=== PATIENT | female | born 1945 | race Caucasian/White ===

== ENCOUNTER 2016-06-22 17:24 | Inpatient (IN) | payer MEDICARE, MEDICAID ==
[~2016-06-22] VITALS: Ht 157.5 cm; Wt 54.2 kg
[~2016-06-22 17:24] MED LIST: AMLO-511 PO; DIPH25 PO; OMEP20 PO; VITAD1000 PO
[2016-06-22] MEDS ORDERED: QUEtiapine FUMARATE 25 MG TABLET PO PRN (18:00)
[2016-06-22] MEDS ORDERED: LORazepam 0.5 MG TABLET PO PRN (18:00)
[2016-06-22] MEDS ORDERED: ZOLPIDEM TARTRATE 5 MG TABLET PO PRN (18:00)
[2016-06-22] MEDS ORDERED: INFLUENZA VIRUS VACCINE QVS 2016-17 (3YR+)/PF 60 MCG/0.5 ML SYRINGE IM ONE (18:45)
[2016-06-22 19:30] VITALS: BP 123/66
[2016-06-22] MEDS: AmLODIPine BESYLATE 5 MG TABLET PO SCH (19:30)
[2016-06-22] MEDS: IBUPROFEN 600 MG TABLET PO PRN (19:31)
[2016-06-22] MEDS: DiphenhydrAMINE HCL 25 MG CAPSULE PO SCH (21:21)
[2016-06-22] MEDS: ASENAPINE 5 MG SUBLINGUAL TABLET SL SCH (21:21)
[2016-06-23 00:12] VITALS: BP 130/67
[2016-06-23 08:24] LABS: BASOPHILS % (AUTO) 0.6 % (0.0-2.0); EOSINOPHILS % (AUTO) 4.6 % (1.0-6.0); HEMATOCRIT 37.3 % (36-46); HEMOGLOBIN 12.2 g/dL (12.0-16.0); LYMPHOCYTES # (AUTO) 2.1 K/uL (1.0-4.8); LYMPHOCYTES % (AUTO) 39.8 % (22.0-44.0); MEAN CORPUSCULAR HEMOGLOBIN 30.1 pg (26.0-34.0); MEAN CORPUSCULAR HGB CONC 32.8 G/dL (31.0-37.0); MEAN CORPUSCULAR VOLUME 92 fL (80-100); MONOCYTES # (AUTO) 0.4 K/uL (0.1-1.0); MONOCYTES % (AUTO) 8.3 % (2.0-9.0); NEUTROPHILS # (AUTO) 2.4 K/uL (1.8-7.7); NEUTROPHILS % (AUTO) 46.7 % (40.0-70.0); PLATELET COUNT (AUTO) 169 K/uL (150-450); RED BLOOD CELL COUNT(AUTO) 4.05 MIL/uL (4.00-5.20); RED CELL DISTRIBUTION WIDTH 13.8 % (11.5-14.5); WHITE BLOOD COUNT (AUTO) 5.2 K/uL (4.5-11.0)
[2016-06-23 08:35] VITALS: BP 138/61
[2016-06-23 09:00] LABS: HEMOGLOBIN A1C 5.7 % (4.5-6.2)
[2016-06-23 09:11] LABS: ALANINE AMINOTRANSFERASE 19 U/L (12-78); ALBUMIN 3.5 g/dL (3.4-5.0); ANION GAP 8 mmol/L (8-16); ASPARTATE AMINOTRANSFERASE 18 U/L (15-37); BILIRUBIN,TOTAL 0.3 mg/dL (0.1-1.0); CALCIUM, TOTAL 8.6 mg/dL (8.8-10.5); CARBON DIOXIDE 26 mmol/L (22-29); CHLORIDE 107 mmol/L (98-107); CHOL/HDL RATIO 2.9 (3.9-5.7); CREATININE 0.61 mg/dL (0.60-1.30); GLOMERULAR FILTR. RATE CALC > 60 mL/min (>60); POTASSIUM 3.8 mmol/L (3.5-5.1); SODIUM SERUM 141 mmol/L (136-145); THYROID STIMULATING HORMONE 3.08 uIU/mL (0.36-3.74); TOTAL PROTEIN, SERUM 6.6 g/dL (6.4-8.2); UREA NITROGEN, BLOOD 16 mg/dL (7-18)
[2016-06-23 09:35] VITALS: BP 135/69
[2016-06-23] MEDS: AmLODIPine BESYLATE 5 MG TABLET PO SCH (09:37)
[2016-06-23] MEDS ORDERED: MAGNESIUM HYDROXIDE SUSPENSION 30 ML UDCUP PO PRN (10:30)
[2016-06-23 16:11] VITALS: BP 118/81
[2016-06-23 17:40] VITALS: BP 138/65
[2016-06-23] MEDS: IBUPROFEN 600 MG TABLET PO PRN (17:46)
[2016-06-23] MEDS: DiphenhydrAMINE HCL 25 MG CAPSULE PO SCH (20:36)
[2016-06-23] MEDS: ASENAPINE 5 MG SUBLINGUAL TABLET SL SCH (21:06)
[2016-06-23] MEDS ORDERED: ONDANSETRON HCL 4 MG TABLET PO PRN (22:30)
[2016-06-23] MEDS ORDERED: CloNIDine HCL 0.1 MG TABLET PO PRN (22:30)
[2016-06-23] MEDS ORDERED: ALBUTEROL SULFATE HFA 90 MCG/PUFF 8 GM INHALER IH PRN (22:30)
[2016-06-23] MEDS ORDERED: PETROLATUM,WHITE 71 GM JELLY TP PRN (22:30)
[2016-06-23] MEDS ORDERED: LOPERAMIDE HCL 2 MG CAPSULE PO PRN (22:30)
[2016-06-23] MEDS ORDERED: IBUPROFEN 600 MG TABLET PO PRN (22:30)
[2016-06-23] MEDS ORDERED: BENZOCAINE/MENTHOL LOZENGE MM PRN (22:30)
[2016-06-23] MEDS ORDERED: BACITRACIN 28.4 GM OINTMENT TP PRN (22:30)
[2016-06-23] MEDS ORDERED: MAG HYDROX/AL HYDROX/SIMETH ES 30 ML SUSPENSION UDCUP PO PRN (22:30)
[2016-06-24 06:22] VITALS: BP 144/77
[2016-06-24 08:31] VITALS: BP 138/67
[2016-06-24] MEDS: AmLODIPine BESYLATE 5 MG TABLET PO SCH (08:55)
[2016-06-24] MEDS ORDERED: TRIAMCINOLONE 0.1% 15 GM OINTMENT TP PRN (11:00)
[2016-06-24 16:11] VITALS: BP 129/73
[2016-06-24] MEDS: ASENAPINE 5 MG SUBLINGUAL TABLET SL SCH (20:09)
[2016-06-24] MEDS: DiphenhydrAMINE HCL 25 MG CAPSULE PO SCH (20:09)
[2016-06-25 06:38] VITALS: BP 147/74
[2016-06-25 08:14] VITALS: BP 132/77
[2016-06-25] MEDS: AmLODIPine BESYLATE 5 MG TABLET PO SCH (09:00)
[2016-06-25 16:11] VITALS: BP 136/79
[2016-06-25] MEDS: DiphenhydrAMINE HCL 25 MG CAPSULE PO SCH (20:48)
[2016-06-25] MEDS: ASENAPINE 5 MG SUBLINGUAL TABLET SL SCH ×2 (21:00→21:57)
[2016-06-26 06:30] VITALS: BP 135/68
[2016-06-26] MEDS: AmLODIPine BESYLATE 5 MG TABLET PO SCH (08:51)
[2016-06-26 09:57] VITALS: BP 145/77
[2016-06-26 16:46] VITALS: BP 140/72
[2016-06-26] MEDS: ACETAMINOPHEN 325 MG TABLET PO PRN (19:04)
[2016-06-26] MEDS ORDERED: OMEPRAZOLE 20 MG CAPSULE PO ONE (21:00)
[2016-06-26] MEDS: ASENAPINE 5 MG SUBLINGUAL TABLET SL SCH (21:00)
[2016-06-26] MEDS: DiphenhydrAMINE HCL 25 MG CAPSULE PO SCH (21:00)
[2016-06-27 00:54] VITALS: BP 142/86
[2016-06-27] MEDS: OMEPRAZOLE 20 MG CAPSULE PO SCH ×2 (06:41→16:52)
[2016-06-27 08:12] VITALS: BP 155/77
[2016-06-27] MEDS: AmLODIPine BESYLATE 5 MG TABLET PO SCH (09:09)
[2016-06-27] MEDS: TRIAMCINOLONE 0.1% 15 GM CREAM TP PRN (13:05)
[2016-06-27 16:16] VITALS: BP 139/75
[2016-06-27] MEDS: ASENAPINE 5 MG SUBLINGUAL TABLET SL SCH (20:36)
[2016-06-27] MEDS: DiphenhydrAMINE HCL 25 MG CAPSULE PO SCH (20:36)
[2016-06-28 06:09] VITALS: BP 141/73
[2016-06-28] MEDS: OMEPRAZOLE 20 MG CAPSULE PO SCH ×2 (06:30→16:35)
[2016-06-28 07:59] VITALS: BP 143/85
[2016-06-28 08:00] VITALS: BP 143/85
[2016-06-28] MEDS: AmLODIPine BESYLATE 5 MG TABLET PO SCH (09:00)
[2016-06-28 16:16] VITALS: BP 125/64
[2016-06-28] MEDS: ASENAPINE 5 MG SUBLINGUAL TABLET SL SCH (21:00)
[2016-06-28] MEDS: DiphenhydrAMINE HCL 25 MG CAPSULE PO SCH (21:00)
[2016-06-29 06:20] VITALS: BP 128/77
[2016-06-29] MEDS: OMEPRAZOLE 20 MG CAPSULE PO SCH ×2 (06:29→16:30)
[2016-06-29] MEDS: AmLODIPine BESYLATE 5 MG TABLET PO SCH (09:00)
[2016-06-29 09:17] VITALS: BP 129/73
[2016-06-29 16:25] VITALS: BP 139/79
[2016-06-29] MEDS: DiphenhydrAMINE HCL 25 MG CAPSULE PO SCH (20:44)
[2016-06-29] MEDS: ASENAPINE 5 MG SUBLINGUAL TABLET SL SCH (20:44)
[2016-06-30 05:35] VITALS: BP 125/63
[2016-06-30] MEDS: OMEPRAZOLE 20 MG CAPSULE PO SCH ×2 (06:17→16:30)
[2016-06-30 08:12] VITALS: BP 132/74
[2016-06-30] MEDS: AmLODIPine BESYLATE 5 MG TABLET PO SCH (09:00)
[2016-06-30 16:10] VITALS: BP 122/73
[2016-06-30] MEDS: DiphenhydrAMINE HCL 25 MG CAPSULE PO SCH (20:38)
[2016-06-30] MEDS: ASENAPINE 5 MG SUBLINGUAL TABLET SL SCH (20:38)
[2016-07-01 00:46] VITALS: BP 139/72
[2016-07-01] MEDS: OMEPRAZOLE 20 MG CAPSULE PO SCH ×3 (06:25→16:30)
[2016-07-01 08:29] VITALS: BP 126/64
[2016-07-01] MEDS: AmLODIPine BESYLATE 5 MG TABLET PO SCH (09:00)
[2016-07-01 16:05] VITALS: BP 133/66
[2016-07-01] MEDS: DiphenhydrAMINE HCL 25 MG CAPSULE PO SCH (20:42)
[2016-07-01] MEDS: ASENAPINE 5 MG SUBLINGUAL TABLET SL SCH (20:42)
[2016-07-02] MEDS: OMEPRAZOLE 20 MG CAPSULE PO SCH ×2 (05:39→16:30)
[2016-07-02 05:56] VITALS: BP 141/8
[2016-07-02] MEDS: AmLODIPine BESYLATE 5 MG TABLET PO SCH (08:22)
[2016-07-02 08:34] VITALS: BP 138/70
[2016-07-02 16:03] VITALS: BP 140/77
[2016-07-02] MEDS: DiphenhydrAMINE HCL 25 MG CAPSULE PO SCH (20:49)
[2016-07-02] MEDS: ASENAPINE 5 MG SUBLINGUAL TABLET SL SCH (20:49)
[2016-07-03 00:03] VITALS: BP 148/65
[2016-07-03] MEDS: OMEPRAZOLE 20 MG CAPSULE PO SCH ×2 (06:29→07:21)
[2016-07-03 09:56] VITALS: BP 148/73
[2016-07-04] MEDS ORDERED: OLANZapine 5 MG RAPDIS TABLET PO SCH (10:30)
[2016-07-04] MEDS ORDERED: QUEtiapine FUMARATE 100 MG TABLET PO SCH (10:30)
[2016-07-04] MEDS ORDERED: DiphenhydrAMINE HCL 50 MG/ML VIAL IM PRN ×2 (15:30→23:30)
[2016-07-04] MEDS ORDERED: FluPHENAZine HCL 2.5 MG/ML INJ IM PRN ×2 (15:30→23:30)
[2016-07-04] MEDS: OMEPRAZOLE 20 MG CAPSULE PO SCH (16:30)
[2016-07-04] MEDS: OLANZapine 5 MG RAPDIS TABLET PO SCH (17:00)
[2016-07-04] MEDS ORDERED: QUEtiapine FUMARATE 100 MG TABLET ONE (23:35)
[2016-07-04] MEDS ORDERED: OLANZapine 5 MG RAPDIS TABLET ONE ×2 (23:35)
[2016-07-04] MEDS ORDERED: OLANZapine 5 MG TABLET ONE (23:35)
[2016-07-04] MEDS ORDERED: DiphenhydrAMINE HCL 50 MG/ML VIAL ONE (23:36)
[2016-07-04] MEDS ORDERED: FluPHENAZine HCL 2.5 MG/ML INJ IM ONE ×2 (23:36)
[2016-07-05] MEDS: OMEPRAZOLE 20 MG CAPSULE PO SCH ×2 (06:19→17:22)
[2016-07-05 06:34] VITALS: BP 182/111
[2016-07-05 07:26] VITALS: BP 108/63
[2016-07-05 08:13] VITALS: BP 118/62
[2016-07-05] MEDS: OLANZapine 5 MG RAPDIS TABLET PO SCH ×2 (08:40→17:22)
[2016-07-05] MEDS ORDERED: OLANZapine 5 MG RAPDIS TABLET PO SCH (09:00)
[2016-07-05 16:10] VITALS: BP 117/79
[2016-07-06 05:32] VITALS: BP 132/71
[2016-07-06] MEDS: OMEPRAZOLE 20 MG CAPSULE PO SCH ×2 (05:35→16:30)
[2016-07-06] MEDS: OLANZapine 5 MG RAPDIS TABLET PO SCH ×2 (08:37→17:44)
[2016-07-06] MEDS: DOCUSATE SODIUM 250 MG CAPSULE PO SCH ×2 (10:45→16:46)
[2016-07-06 16:06] VITALS: BP 117/60
[2016-07-07 02:57] VITALS: BP 121/73
[2016-07-07] MEDS: OMEPRAZOLE 20 MG CAPSULE PO SCH ×2 (06:27→16:30)
[2016-07-07 08:11] VITALS: BP 148/75
[2016-07-07] MEDS: OLANZapine 5 MG RAPDIS TABLET PO SCH ×2 (08:38→17:39)
[2016-07-07] MEDS: DOCUSATE SODIUM 250 MG CAPSULE PO SCH ×2 (08:43→17:00)
[2016-07-07] MEDS: TRIAMCINOLONE 0.1% 15 GM CREAM TP PRN (15:53)
[2016-07-07 18:36] VITALS: BP 148/76
[2016-07-07 20:05] VITALS: BP 135/78
[2016-07-08 03:10] VITALS: BP 119/71
[2016-07-08] MEDS: OMEPRAZOLE 20 MG CAPSULE PO SCH ×3 (06:07→16:44)
[2016-07-08 06:12] VITALS: BP 123/88
[2016-07-08] MEDS: OLANZapine 5 MG RAPDIS TABLET PO SCH ×2 (08:31→16:44)
[2016-07-08] MEDS: DOCUSATE SODIUM 250 MG CAPSULE PO SCH ×2 (08:40→16:44)
[2016-07-08 08:55] VITALS: BP 128/73
[2016-07-08 16:28] VITALS: BP 135/74
[2016-07-09] VITALS: BP 106/62
[2016-07-09] MEDS: OMEPRAZOLE 20 MG CAPSULE PO SCH ×2 (06:38→16:18)
[2016-07-09 08:24] VITALS: BP 139/64
[2016-07-09] MEDS: DOCUSATE SODIUM 250 MG CAPSULE PO SCH ×2 (09:00→17:00)
[2016-07-09] MEDS: OLANZapine 5 MG RAPDIS TABLET PO SCH ×3 (09:10→20:06)
[2016-07-09 16:03] VITALS: BP 141/71
[2016-07-09] MEDS: TRIAMCINOLONE 0.1% 15 GM CREAM TP PRN (18:37)
[2016-07-10 02:49] VITALS: BP 158/78
[2016-07-10] MEDS: OMEPRAZOLE 20 MG CAPSULE PO SCH ×2 (06:12→16:31)
[2016-07-10 06:42] VITALS: BP 147/90
[2016-07-10 08:58] VITALS: BP 144/73
[2016-07-10] MEDS: DOCUSATE SODIUM 250 MG CAPSULE PO SCH ×2 (09:00→16:37)
[2016-07-10] MEDS: OLANZapine 5 MG RAPDIS TABLET PO SCH ×3 (09:19→20:15)
[2016-07-10 16:44] VITALS: BP 133/68
[2016-07-11] MEDS: OMEPRAZOLE 20 MG CAPSULE PO SCH ×3 (06:12→18:06)
[2016-07-11 06:24] VITALS: BP 131/72
[2016-07-11 08:03] VITALS: BP 141/90
[2016-07-11] MEDS: DOCUSATE SODIUM 250 MG CAPSULE PO SCH ×2 (09:00→17:00)
[2016-07-11] MEDS: OLANZapine 5 MG RAPDIS TABLET PO SCH ×3 (09:08→21:06)
[2016-07-11 16:08] VITALS: BP 120/62
[2016-07-12] MEDS: OMEPRAZOLE 20 MG CAPSULE PO SCH ×2 (06:04→16:30)
[2016-07-12 06:21] VITALS: BP 112/82
[2016-07-12] MEDS: DOCUSATE SODIUM 250 MG CAPSULE PO SCH ×3 (09:00→17:00)
[2016-07-12 09:05] VITALS: BP 130/74
[2016-07-12] MEDS: OLANZapine 5 MG RAPDIS TABLET PO SCH ×3 (09:49→20:43)
[2016-07-12] MEDS: TRIAMCINOLONE 0.1% 15 GM CREAM TP PRN (09:59)
[2016-07-12 16:11] VITALS: BP 127/77
[2016-07-13 02:08] VITALS: BP 123/66
[2016-07-13] MEDS: OMEPRAZOLE 20 MG CAPSULE PO SCH ×2 (05:53→17:12)
[2016-07-13] MEDS: OLANZapine 5 MG RAPDIS TABLET PO SCH ×3 (08:39→21:15)
[2016-07-13] MEDS: DOCUSATE SODIUM 250 MG CAPSULE PO SCH ×2 (08:39→17:00)
[2016-07-13 09:07] VITALS: BP 146/69
[2016-07-13 16:14] VITALS: BP 136/72
[2016-07-14 01:22] VITALS: BP 125/66
[2016-07-14] MEDS: OMEPRAZOLE 20 MG CAPSULE PO SCH ×2 (06:26→17:54)
[2016-07-14 08:05] VITALS: BP 147/76
[2016-07-14] MEDS: OLANZapine 5 MG RAPDIS TABLET PO SCH ×3 (08:41→20:41)
[2016-07-14] MEDS: DOCUSATE SODIUM 250 MG CAPSULE PO SCH ×2 (08:42→16:58)
[2016-07-14] MEDS: BENZOCAINE 10% 7 GM GEL TP PRN (12:18)
[2016-07-14 16:10] VITALS: BP 130/70
[2016-07-14] MEDS: CHLORHEXIDINE GLUCONATE 0.12% 15 ML UDCUP ORAL RINSE PO SCH (20:40)
[2016-07-15 00:01] VITALS: BP 129/72
[2016-07-15 03:29] VITALS: BP 122/66
[2016-07-15] MEDS: ACETAMINOPHEN 325 MG TABLET PO PRN (03:30)
[2016-07-15] MEDS: OMEPRAZOLE 20 MG CAPSULE PO SCH ×2 (05:50→16:37)
[2016-07-15] MEDS: DOCUSATE SODIUM 250 MG CAPSULE PO SCH ×2 (08:58→17:00)
[2016-07-15] MEDS: OLANZapine 5 MG RAPDIS TABLET PO SCH ×4 (08:58→21:10)
[2016-07-15 16:04] VITALS: BP 127/82
[2016-07-15] MEDS: CHLORHEXIDINE GLUCONATE 0.12% 15 ML UDCUP ORAL RINSE PO SCH ×2 (21:00→21:10)
[2016-07-16 06:09] VITALS: BP 116/73
[2016-07-16] MEDS: OMEPRAZOLE 20 MG CAPSULE PO SCH ×2 (06:19→16:23)
[2016-07-16 06:45] VITALS: BP 164/85
[2016-07-16 08:38] VITALS: BP 159/76
[2016-07-16] MEDS: DOCUSATE SODIUM 250 MG CAPSULE PO SCH ×2 (09:00→17:00)
[2016-07-16] MEDS: AMANTADINE HCL 100 MG CAPSULE PO SCH ×2 (09:00→21:00)
[2016-07-16] MEDS: OLANZapine 5 MG RAPDIS TABLET PO SCH ×2 (09:52→21:03)
[2016-07-16] MEDS: TRIAMCINOLONE 0.1% 15 GM CREAM TP PRN (10:24)
[2016-07-16 12:16] VITALS: BP 125/77
[2016-07-16 19:48] VITALS: BP 131/73
[2016-07-16] MEDS: CHLORHEXIDINE GLUCONATE 0.12% 15 ML UDCUP ORAL RINSE PO SCH (21:00)
[2016-07-17 02:04] VITALS: BP_SYST 121; BP_SYST 145; BP_DIAS 77; BP_DIAS 81
[2016-07-17] MEDS: TRIAMCINOLONE 0.1% 15 GM CREAM TP PRN (02:48)
[2016-07-17] MEDS: BENZOCAINE 10% 7 GM GEL TP PRN (02:48)
[2016-07-17] MEDS: OMEPRAZOLE 20 MG CAPSULE PO SCH ×2 (06:51→16:30)
[2016-07-17] MEDS: AMANTADINE HCL 100 MG CAPSULE PO SCH ×2 (09:00→21:00)
[2016-07-17] MEDS: DOCUSATE SODIUM 250 MG CAPSULE PO SCH ×2 (09:00→17:00)
[2016-07-17 09:09] VITALS: BP 125/81
[2016-07-17] MEDS: OLANZapine 5 MG RAPDIS TABLET PO SCH ×2 (09:16→21:33)
[2016-07-17 16:02] VITALS: BP 127/69
[2016-07-17] MEDS: CHLORHEXIDINE GLUCONATE 0.12% 15 ML UDCUP ORAL RINSE PO SCH (21:00)
[2016-07-18 06:10] VITALS: BP 121/80
[2016-07-18] MEDS: OMEPRAZOLE 20 MG CAPSULE PO SCH ×2 (06:51→16:15)
[2016-07-18] MEDS: AMANTADINE HCL 100 MG CAPSULE PO SCH ×2 (08:29→20:58)
[2016-07-18] MEDS: OLANZapine 5 MG RAPDIS TABLET PO SCH ×2 (08:30→20:58)
[2016-07-18 09:24] VITALS: BP 125/68
[2016-07-18 16:08] VITALS: BP 128/73
[2016-07-18] MEDS: CHLORHEXIDINE GLUCONATE 0.12% 15 ML UDCUP ORAL RINSE PO SCH (20:58)
[2016-07-19 06:11] VITALS: BP 138/76
[2016-07-19] MEDS: OMEPRAZOLE 20 MG CAPSULE PO SCH ×2 (06:27→16:07)
[2016-07-19 08:31] VITALS: BP 127/74
[2016-07-19] MEDS: OLANZapine 5 MG RAPDIS TABLET PO SCH ×2 (08:36→20:07)
[2016-07-19] MEDS: AMANTADINE HCL 100 MG CAPSULE PO SCH (09:00)
[2016-07-19 16:00] VITALS: BP 135/76
[2016-07-19] MEDS: CHLORHEXIDINE GLUCONATE 0.12% 15 ML UDCUP ORAL RINSE PO SCH (21:00)
[2016-07-20 06:04] VITALS: BP 125/73
[2016-07-20] MEDS: OMEPRAZOLE 20 MG CAPSULE PO SCH (06:43)
[2016-07-20] MEDS: OLANZapine 5 MG RAPDIS TABLET PO SCH (08:46)
[2016-07-20 09:02] VITALS: BP 125/60
[2016-07-20] MEDS ORDERED: OLAN5Z PO (10:02)
[2016-07-20] MEDS ORDERED: PERID15L PO (10:02)
== END 2016-07-20 12:47 | disposition home or self-care (01) | DRG 885 ==
LOC: B2S 17:52 → B2X 20:35
PROVIDERS: ADMIT Psychiatry & Neurology Psychiatry; ATTEND Psychiatry & Neurology Psychiatry
DX: F25.0 Schizoaffective disorder, bipolar type (principal); R45.851 Suicidal ideations; E55.9 Vitamin D deficiency, unspecified; I10 Essential (primary) hypertension; M19.90 Unspecified osteoarthritis, unspecified site; K59.00 Constipation, unspecified; E73.9 Lactose intolerance, unspecified; G47.00 Insomnia, unspecified; K21.9 Gastro-esophageal reflux disease without esophagitis; Z59.0 Homelessness; Z88.5 Allergy status to narcotic agent; Z91.14 Patient's other noncompliance with medication regimen; Z79.899 Other long term (current) drug therapy; Z28.21 Immunization not carried out because of patient refusal
CPT/HCPCS: 83036; 84439; 84443; J1200; J3490

== ENCOUNTER 2016-08-19 18:43 | Inpatient (IN) | payer MEDICAID, MEDICARE ==
[~2016-08-19] VITALS: Ht 157.5 cm; Wt 55.0 kg
[~2016-08-19 18:43] MED LIST changes: -AMLO-511 PO; -DIPH25 PO; +OLAN5Z PO; +PERID15L PO; -VITAD1000 PO
[2016-08-19] MEDS ORDERED: ZOLPIDEM TARTRATE 10 MG TABLET PO PRN (19:15)
[2016-08-19] MEDS ORDERED: LORazepam 2 MG TABLET PO PRN (19:15)
[2016-08-19] MEDS ORDERED: QUEtiapine FUMARATE 100 MG TABLET PO PRN (19:15)
[2016-08-19] MEDS ORDERED: INFLUENZA VIRUS VACCINE QVS 2016-17 (3YR+)/PF 60 MCG/0.5 ML SYRINGE IM ONE (19:45)
[2016-08-19 20:07] VITALS: BP 134/76
[2016-08-19] MEDS: OLANZapine 5 MG RAPDIS TABLET PO SCH (20:14)
[2016-08-20 06:25] VITALS: BP 141/68
[2016-08-20 08:21] VITALS: BP 134/66
[2016-08-20] MEDS: OLANZapine 5 MG RAPDIS TABLET PO SCH ×3 (08:35→21:00)
[2016-08-20] MEDS: DOCUSATE SODIUM 250 MG CAPSULE PO SCH ×3 (08:35→16:32)
[2016-08-20] MEDS: AmLODIPine BESYLATE 5 MG TABLET PO SCH ×2 (08:35→09:00)
[2016-08-20] MEDS ORDERED: LOPERAMIDE HCL 2 MG CAPSULE PO PRN (09:45)
[2016-08-20] MEDS ORDERED: BACITRACIN 28.4 GM OINTMENT TP PRN (09:45)
[2016-08-20] MEDS ORDERED: CloNIDine HCL 0.1 MG TABLET PO PRN (09:45)
[2016-08-20] MEDS ORDERED: IBUPROFEN 600 MG TABLET PO PRN (09:45)
[2016-08-20] MEDS ORDERED: ONDANSETRON HCL 4 MG TABLET PO PRN (09:45)
[2016-08-20] MEDS ORDERED: ALBUTEROL SULFATE HFA 90 MCG/PUFF 8 GM INHALER IH PRN (09:45)
[2016-08-20] MEDS ORDERED: PETROLATUM,WHITE 71 GM JELLY TP PRN (09:45)
[2016-08-20] MEDS ORDERED: BENZOCAINE/MENTHOL LOZENGE MM PRN (09:45)
[2016-08-20] MEDS ORDERED: MAG HYDROX/AL HYDROX/SIMETH ES 30 ML SUSPENSION UDCUP PO PRN (09:45)
[2016-08-20] MEDS ORDERED: MAGNESIUM HYDROXIDE SUSPENSION 30 ML UDCUP PO PRN (09:45)
[2016-08-20] MEDS: ACETAMINOPHEN 325 MG TABLET PO PRN (11:22)
[2016-08-20] MEDS ORDERED: OMEPRAZOLE 20 MG CAPSULE PO ONE (12:00)
[2016-08-20] MEDS: MAGNESIUM SULFATE 454 GM BOX TP SCH (12:11)
[2016-08-20 17:20] VITALS: BP 166/88
[2016-08-20 18:29] VITALS: BP 145/75
[2016-08-21] MEDS: OMEPRAZOLE 20 MG CAPSULE PO SCH (06:25)
[2016-08-21 08:24] VITALS: BP 138/68
[2016-08-21 08:28] LABS: BASOPHILS % (AUTO) 0.4 % (0.0-2.0); EOSINOPHILS % (AUTO) 3.5 % (1.0-6.0); HEMATOCRIT 39.7 % (36-46); HEMOGLOBIN 12.9 g/dL (12.0-16.0); LYMPHOCYTES # (AUTO) 1.8 K/uL (1.0-4.8); LYMPHOCYTES % (AUTO) 25.7 % (22.0-44.0); MEAN CORPUSCULAR HEMOGLOBIN 29.7 pg (26.0-34.0); MEAN CORPUSCULAR HGB CONC 32.4 G/dL (31.0-37.0); MEAN CORPUSCULAR VOLUME 92 fL (80-100); MONOCYTES # (AUTO) 0.4 K/uL (0.1-1.0); NEUTROPHILS # (AUTO) 4.5 K/uL (1.8-7.7); NEUTROPHILS % (AUTO) 64.4 % (40.0-70.0); PLATELET COUNT (AUTO) 174 K/uL (150-450); RED BLOOD CELL COUNT(AUTO) 4.32 MIL/uL (4.00-5.20)
[2016-08-21 08:49] LABS: HEMOGLOBIN A1C 5.6 % (4.5-6.2)
[2016-08-21] MEDS ORDERED: DOCUSATE SODIUM 100 MG CAPSULE PO SCH (09:00)
[2016-08-21] MEDS: MAGNESIUM SULFATE 454 GM BOX TP SCH (09:00)
[2016-08-21] MEDS: AmLODIPine BESYLATE 5 MG TABLET PO SCH (09:00)
[2016-08-21] MEDS: DOCUSATE SODIUM 250 MG CAPSULE PO SCH ×2 (09:00→17:00)
[2016-08-21] MEDS: OLANZapine 5 MG RAPDIS TABLET PO SCH ×3 (09:00→20:10)
[2016-08-21 09:19] LABS: ALANINE AMINOTRANSFERASE 20 U/L (12-78); ALBUMIN 3.6 g/dL (3.4-5.0); ANION GAP 9 mmol/L (8-16); ASPARTATE AMINOTRANSFERASE 14 U/L (15-37); BILIRUBIN,TOTAL 0.4 mg/dL (0.1-1.0); CALCIUM, TOTAL 8.7 mg/dL (8.8-10.5); CARBON DIOXIDE 30 mmol/L (22-29); CHLORIDE 105 mmol/L (98-107); CREATININE 0.73 mg/dL (0.60-1.30); GLOMERULAR FILTR. RATE CALC > 60 mL/min (>60); POTASSIUM 4.2 mmol/L (3.5-5.1); SODIUM SERUM 144 mmol/L (136-145); THYROID STIMULATING HORMONE 1.48 uIU/mL (0.36-3.74); TOTAL PROTEIN, SERUM 6.9 g/dL (6.4-8.2); UREA NITROGEN, BLOOD 17 mg/dL (7-18)
[2016-08-21 09:59] VITALS: BP 126/72
[2016-08-21] MEDS: ACETAMINOPHEN 325 MG TABLET PO PRN (09:59)
[2016-08-21 16:15] VITALS: BP 148/68
[2016-08-21] MEDS: TRIAMCINOLONE 0.1% 15 GM OINTMENT TP PRN (17:39)
[2016-08-22] MEDS: OMEPRAZOLE 20 MG CAPSULE PO SCH (06:20)
[2016-08-22 08:44] VITALS: BP 153/62
[2016-08-22] MEDS: AmLODIPine BESYLATE 5 MG TABLET PO SCH (09:00)
[2016-08-22] MEDS: DOCUSATE SODIUM 250 MG CAPSULE PO SCH ×2 (09:00→16:54)
[2016-08-22] MEDS: OLANZapine 5 MG RAPDIS TABLET PO SCH ×2 (09:19→20:35)
[2016-08-22] MEDS: MAGNESIUM SULFATE 454 GM BOX TP SCH (09:20)
[2016-08-22] MEDS: ACETAMINOPHEN 325 MG TABLET PO PRN (15:00)
[2016-08-22 16:00] VITALS: BP 131/68
[2016-08-23] MEDS: OMEPRAZOLE 20 MG CAPSULE PO SCH (06:12)
[2016-08-23] MEDS: TRIAMCINOLONE 0.1% 15 GM OINTMENT TP PRN (08:18)
[2016-08-23 08:35] VITALS: BP 136/70
[2016-08-23] MEDS: AmLODIPine BESYLATE 5 MG TABLET PO SCH ×2 (09:00→09:30)
[2016-08-23] MEDS: DOCUSATE SODIUM 250 MG CAPSULE PO SCH ×3 (09:00→17:00)
[2016-08-23] MEDS: OLANZapine 5 MG RAPDIS TABLET PO SCH ×2 (09:30→20:21)
[2016-08-23] MEDS: MAGNESIUM SULFATE 454 GM BOX TP SCH (09:30)
[2016-08-23] MEDS: ACETAMINOPHEN 325 MG TABLET PO PRN (14:07)
[2016-08-23 17:53] VITALS: BP 146/76
[2016-08-24] MEDS: OMEPRAZOLE 20 MG CAPSULE PO SCH (06:19)
[2016-08-24 08:43] VITALS: BP 142/76
[2016-08-24] MEDS: OLANZapine 5 MG RAPDIS TABLET PO SCH ×2 (09:54→20:39)
[2016-08-24] MEDS: AmLODIPine BESYLATE 5 MG TABLET PO SCH (09:54)
[2016-08-24] MEDS: MAGNESIUM SULFATE 454 GM BOX TP SCH (09:54)
[2016-08-24] MEDS: DOCUSATE SODIUM 250 MG CAPSULE PO SCH ×2 (09:54→17:00)
[2016-08-24 16:19] VITALS: BP 128/77
[2016-08-25 06:00] VITALS: BP 130/74
[2016-08-25] MEDS: OMEPRAZOLE 20 MG CAPSULE PO SCH (06:08)
[2016-08-25 08:37] VITALS: BP 128/69
[2016-08-25] MEDS: MAGNESIUM SULFATE 454 GM BOX TP SCH (08:52)
[2016-08-25] MEDS: OLANZapine 5 MG RAPDIS TABLET PO SCH ×2 (08:52→20:41)
[2016-08-25] MEDS: AmLODIPine BESYLATE 5 MG TABLET PO SCH (08:56)
[2016-08-25] MEDS: TRIAMCINOLONE 0.1% 15 GM OINTMENT TP PRN (14:30)
[2016-08-25 16:27] VITALS: BP 147/81
[2016-08-25] MEDS: AMANTADINE HCL 100 MG CAPSULE PO SCH (21:00)
[2016-08-26] MEDS: OMEPRAZOLE 20 MG CAPSULE PO SCH (06:52)
[2016-08-26] MEDS: ACETAMINOPHEN 325 MG TABLET PO PRN (08:43)
[2016-08-26 08:51] VITALS: BP 127/72
[2016-08-26] MEDS: AMANTADINE HCL 100 MG CAPSULE PO SCH ×2 (09:00→21:00)
[2016-08-26] MEDS: AmLODIPine BESYLATE 5 MG TABLET PO SCH (09:00)
[2016-08-26] MEDS: OLANZapine 5 MG RAPDIS TABLET PO SCH ×2 (09:59→21:30)
[2016-08-26 18:09] VITALS: BP 123/83
[2016-08-27 06:14] VITALS: BP 135/82
[2016-08-27] MEDS: OMEPRAZOLE 20 MG CAPSULE PO SCH (06:37)
[2016-08-27 08:00] VITALS: BP 129/78
[2016-08-27] MEDS: ACETAMINOPHEN 325 MG TABLET PO PRN (08:00)
[2016-08-27 08:17] VITALS: BP 149/72
[2016-08-27] MEDS: AMANTADINE HCL 100 MG CAPSULE PO SCH ×2 (09:00→20:56)
[2016-08-27] MEDS: AmLODIPine BESYLATE 5 MG TABLET PO SCH (09:00)
[2016-08-27] MEDS: OLANZapine 5 MG RAPDIS TABLET PO SCH ×2 (09:06→20:55)
[2016-08-27 16:17] VITALS: BP 134/82
[2016-08-28] MEDS: OMEPRAZOLE 20 MG CAPSULE PO SCH (06:31)
[2016-08-28 08:33] VITALS: BP 137/77
[2016-08-28] MEDS: ACETAMINOPHEN 325 MG TABLET PO PRN ×2 (08:46→18:28)
[2016-08-28] MEDS: AmLODIPine BESYLATE 5 MG TABLET PO SCH (09:00)
[2016-08-28] MEDS: AMANTADINE HCL 100 MG CAPSULE PO SCH ×2 (09:00→21:00)
[2016-08-28] MEDS: OLANZapine 5 MG RAPDIS TABLET PO SCH ×2 (09:02→21:51)
[2016-08-28 16:41] VITALS: BP 134/82
[2016-08-29] MEDS: OMEPRAZOLE 20 MG CAPSULE PO SCH (06:22)
[2016-08-29] MEDS: OLANZapine 5 MG RAPDIS TABLET PO SCH ×2 (08:59→21:53)
[2016-08-29] MEDS: AmLODIPine BESYLATE 5 MG TABLET PO SCH (09:00)
[2016-08-29] MEDS: AMANTADINE HCL 100 MG CAPSULE PO SCH ×2 (09:00→21:00)
[2016-08-29 09:13] VITALS: BP 142/68
[2016-08-29 10:32] VITALS: BP 138/74
[2016-08-29] MEDS: ACETAMINOPHEN 325 MG TABLET PO PRN (10:32)
[2016-08-29 16:12] VITALS: BP 121/70
[2016-08-30 03:33] VITALS: BP 136/72
[2016-08-30] MEDS: OMEPRAZOLE 20 MG CAPSULE PO SCH (06:24)
[2016-08-30 08:17] VITALS: BP 136/88
[2016-08-30] MEDS: OLANZapine 5 MG RAPDIS TABLET PO SCH ×2 (08:47→20:42)
[2016-08-30] MEDS: AMANTADINE HCL 100 MG CAPSULE PO SCH (08:51)
[2016-08-30] MEDS: AmLODIPine BESYLATE 5 MG TABLET PO SCH (08:51)
[2016-08-30 17:36] VITALS: BP 129/78
[2016-08-31 03:15] VITALS: BP 128/76
[2016-08-31] MEDS: OMEPRAZOLE 20 MG CAPSULE PO SCH (06:21)
[2016-08-31] MEDS: OLANZapine 5 MG RAPDIS TABLET PO SCH ×2 (08:14→21:15)
[2016-08-31 08:43] VITALS: BP 123/64
[2016-08-31 16:06] VITALS: BP 134/73
[2016-09-01] MEDS: OMEPRAZOLE 20 MG CAPSULE PO SCH (06:36)
[2016-09-01 07:20] VITALS: BP 130/72
[2016-09-01 08:05] VITALS: BP 141/74
[2016-09-01] MEDS: OLANZapine 5 MG RAPDIS TABLET PO SCH ×2 (09:15→21:46)
[2016-09-01] MEDS: MULTIVITAMINS, THERAPEUTIC TABLET PO SCH (09:15)
[2016-09-01] MEDS: BENZOCAINE/MENTHOL LOZENGE PO PRN (14:19)
[2016-09-01] MEDS: ACETAMINOPHEN 325 MG TABLET PO PRN (14:20)
[2016-09-01 16:10] VITALS: BP 125/64
[2016-09-02] MEDS: OMEPRAZOLE 20 MG CAPSULE PO SCH (06:17)
[2016-09-02 07:26] VITALS: BP 112/62
[2016-09-02 08:55] VITALS: BP 140/85
[2016-09-02] MEDS: OLANZapine 5 MG RAPDIS TABLET PO SCH ×2 (09:16→21:06)
[2016-09-02] MEDS: MULTIVITAMINS, THERAPEUTIC TABLET PO SCH (09:16)
[2016-09-02 16:12] VITALS: BP 153/78
[2016-09-03] MEDS: OMEPRAZOLE 20 MG CAPSULE PO SCH (06:18)
[2016-09-03] MEDS: OLANZapine 5 MG RAPDIS TABLET PO SCH ×2 (08:57→21:08)
[2016-09-03 09:07] VITALS: BP 132/77
[2016-09-03] MEDS: MULTIVITAMINS, THERAPEUTIC TABLET PO SCH (09:24)
[2016-09-03 16:07] VITALS: BP 128/75
[2016-09-03] MEDS: TRIAMCINOLONE 0.1% 15 GM OINTMENT TP PRN (21:49)
[2016-09-04] MEDS: OMEPRAZOLE 20 MG CAPSULE PO SCH (06:39)
[2016-09-04] MEDS: MULTIVITAMINS, THERAPEUTIC TABLET PO SCH (08:31)
[2016-09-04] MEDS: OLANZapine 5 MG RAPDIS TABLET PO SCH ×2 (08:31→20:15)
[2016-09-04 08:44] VITALS: BP 157/82
[2016-09-04 13:06] VITALS: BP 133/89
[2016-09-04] MEDS: ACETAMINOPHEN 325 MG TABLET PO PRN (13:11)
[2016-09-04 16:20] VITALS: BP 142/85
[2016-09-05] MEDS: OMEPRAZOLE 20 MG CAPSULE PO SCH (06:30)
[2016-09-05 07:11] VITALS: BP 138/87
[2016-09-05 08:19] VITALS: BP 133/61
[2016-09-05] MEDS: OLANZapine 5 MG RAPDIS TABLET PO SCH ×2 (08:52→20:36)
[2016-09-05] MEDS: MULTIVITAMINS, THERAPEUTIC TABLET PO SCH (08:52)
[2016-09-05 12:52] VITALS: BP 132/30
[2016-09-05] MEDS: ACETAMINOPHEN 325 MG TABLET PO PRN (13:10)
[2016-09-05 16:45] VITALS: BP 134/67
[2016-09-06] MEDS: OMEPRAZOLE 20 MG CAPSULE PO SCH (06:24)
[2016-09-06] MEDS: ACETAMINOPHEN 325 MG TABLET PO PRN (07:17)
[2016-09-06 08:17] VITALS: BP 121/62
[2016-09-06 08:23] VITALS: BP 121/62
[2016-09-06] MEDS: OLANZapine 5 MG RAPDIS TABLET PO SCH ×2 (08:36→20:13)
[2016-09-06] MEDS: MULTIVITAMINS, THERAPEUTIC TABLET PO SCH (08:36)
[2016-09-06 18:07] VITALS: BP 142/89
[2016-09-07] MEDS: OMEPRAZOLE 20 MG CAPSULE PO SCH (06:29)
[2016-09-07 07:00] VITALS: BP 137/64
[2016-09-07] MEDS: MULTIVITAMINS, THERAPEUTIC TABLET PO SCH (08:11)
[2016-09-07] MEDS: OLANZapine 5 MG RAPDIS TABLET PO SCH ×2 (08:12→21:31)
[2016-09-07 08:26] VITALS: BP 137/68
[2016-09-07 16:13] VITALS: BP 127/72
[2016-09-07] MEDS: BENZOCAINE/MENTHOL LOZENGE PO PRN (19:31)
[2016-09-08] MEDS: ACETAMINOPHEN 325 MG TABLET PO PRN ×2 (00:41→16:15)
[2016-09-08 06:25] VITALS: BP 156/86
[2016-09-08] MEDS: OMEPRAZOLE 20 MG CAPSULE PO SCH (06:25)
[2016-09-08 08:24] LABS: HEMATOCRIT 38.1 % (36-46); HEMOGLOBIN 12.6 g/dL (12.0-16.0); MEAN CORPUSCULAR HEMOGLOBIN 29.8 pg (26.0-34.0); MEAN CORPUSCULAR HGB CONC 33.1 G/dL (31.0-37.0); MEAN CORPUSCULAR VOLUME 90 fL (80-100); PLATELET COUNT (AUTO) 179 K/uL (150-450); RED BLOOD CELL COUNT(AUTO) 4.24 MIL/uL (4.00-5.20); RED CELL DISTRIBUTION WIDTH 13.6 % (11.5-14.5); WHITE BLOOD COUNT (AUTO) 6.6 K/uL (4.5-11.0)
[2016-09-08 08:25] VITALS: BP 148/84
[2016-09-08] MEDS: MULTIVITAMINS, THERAPEUTIC TABLET PO SCH (08:32)
[2016-09-08] MEDS: OLANZapine 5 MG RAPDIS TABLET PO SCH ×2 (08:32→20:45)
[2016-09-08 08:38] LABS: ANION GAP 8 mmol/L (8-16); CALCIUM, TOTAL 8.8 mg/dL (8.8-10.5); CARBON DIOXIDE 30 mmol/L (22-29); CHLORIDE 105 mmol/L (98-107); CREATININE 0.57 mg/dL (0.60-1.30); GLOMERULAR FILTR. RATE CALC > 60 mL/min (>60); POTASSIUM 3.7 mmol/L (3.5-5.1); SODIUM SERUM 143 mmol/L (136-145); UREA NITROGEN, BLOOD 11 mg/dL (7-18)
[2016-09-08 09:19] LABS: BAND NEUTROPHILS % (MANUAL) 3 % (1-5); LYMPHOCYTES % (MANUAL) 28 % (22-44); RBC MORPHOLOGY COMMENT NORMAL RBC MORPH; TOTAL CELLS COUNTED 100
[2016-09-08] MEDS: BENZOCAINE/MENTHOL LOZENGE PO PRN (16:15)
[2016-09-08] MEDS: TRIAMCINOLONE 0.1% 15 GM OINTMENT TP PRN (16:15)
[2016-09-08 16:18] VITALS: BP 102/73
[2016-09-09] MEDS: OMEPRAZOLE 20 MG CAPSULE PO SCH (06:21)
[2016-09-09 07:23] VITALS: BP 135/78
[2016-09-09] MEDS: MULTIVITAMINS, THERAPEUTIC TABLET PO SCH (08:38)
[2016-09-09] MEDS: OLANZapine 5 MG RAPDIS TABLET PO SCH ×2 (08:38→20:33)
[2016-09-09 08:45] VITALS: BP 152/77
[2016-09-09 16:20] VITALS: BP 143/80
[2016-09-10 06:00] VITALS: BP 143/78
[2016-09-10] MEDS: OMEPRAZOLE 20 MG CAPSULE PO SCH (07:03)
[2016-09-10 08:12] VITALS: BP 144/73
[2016-09-10] MEDS: OLANZapine 5 MG RAPDIS TABLET PO SCH ×2 (08:38→20:34)
[2016-09-10] MEDS: MULTIVITAMINS, THERAPEUTIC TABLET PO SCH (08:38)
[2016-09-10] MEDS: CHOLECALCIFEROL (VIT D3) 1,000 UNITS TABLET PO SCH (08:38)
[2016-09-10] MEDS ORDERED: GuaiFENesin/D-METHORPHAN [SUGAR-FREE] 200-20MG/10 ML SYRUP UDCUP PO PRN (12:00)
[2016-09-10 16:39] VITALS: BP 148/78
[2016-09-11] MEDS: OMEPRAZOLE 20 MG CAPSULE PO SCH (06:10)
[2016-09-11] MEDS: CHOLECALCIFEROL (VIT D3) 1,000 UNITS TABLET PO SCH (08:37)
[2016-09-11] MEDS: OLANZapine 5 MG RAPDIS TABLET PO SCH (08:37)
[2016-09-11] MEDS: MULTIVITAMINS, THERAPEUTIC TABLET PO SCH (08:37)
[2016-09-11 08:43] VITALS: BP 143/80
== END 2016-09-11 13:30 | disposition home or self-care (01) | DRG 885 ==
LOC: B2S 19:07 → UNDOADMIN 19:07 → EDSTATUS 19:16 → B2S 08-20 15:07 → B2X 08-20 15:07 → B3A 08-20 15:55
PROVIDERS: ADMIT Psychiatry & Neurology Psychiatry; ATTEND Psychiatry & Neurology Psychiatry
DX: F25.1 Schizoaffective disorder, depressive type (principal); R45.851 Suicidal ideations; I10 Essential (primary) hypertension; M19.90 Unspecified osteoarthritis, unspecified site; E55.9 Vitamin D deficiency, unspecified; G47.00 Insomnia, unspecified; F41.9 Anxiety disorder, unspecified; R53.83 Other fatigue; K21.9 Gastro-esophageal reflux disease without esophagitis; K59.09 Other constipation; Z63.8 Other specified problems related to primary support group; Z91.14 Patient's other noncompliance with medication regimen; Z98.82 Breast implant status; Z59.0 Homelessness; Z88.6 Allergy status to analgesic agent
CPT/HCPCS: 82306; 83036; 84439; 84443; 85007

== ENCOUNTER 2016-10-20 16:25 | Inpatient (IN) | payer MEDICARE ==
[~2016-10-20] VITALS: Ht 160 cm; Wt 55.8 kg
[~2016-10-20 16:25] MED LIST changes: -PERID15L PO
[2016-10-20] MEDS ORDERED: ZOLPIDEM TARTRATE 10 MG TABLET PO PRN (17:30)
[2016-10-20] MEDS ORDERED: QUEtiapine FUMARATE 100 MG TABLET PO PRN (17:30)
[2016-10-20] MEDS ORDERED: LORazepam 1 MG TABLET PO PRN (17:30)
[2016-10-20 18:12] VITALS: BP 152/88
[2016-10-20] MEDS ORDERED: ACETAMINOPHEN 325 MG TABLET PO PRN (20:00)
[2016-10-20] MEDS ORDERED: OMEPRAZOLE 20 MG CAPSULE PO ONE (20:00)
[2016-10-20 20:54] VITALS: BP 142/84
[2016-10-20] MEDS: OLANZapine 5 MG RAPDIS TABLET PO SCH (20:57)
[2016-10-21 05:56] VITALS: BP 112/61
[2016-10-21] MEDS ORDERED: OMEPRAZOLE 20 MG CAPSULE PO SCH (06:30)
[2016-10-21 08:05] VITALS: BP 132/73
[2016-10-21] MEDS ORDERED: IBUPROFEN 600 MG TABLET PO PRN (08:30)
[2016-10-21] MEDS ORDERED: MAG HYDROX/AL HYDROX/SIMETH ES 30 ML SUSPENSION UDCUP PO PRN (08:30)
[2016-10-21] MEDS ORDERED: MAGNESIUM HYDROXIDE SUSPENSION 30 ML UDCUP PO PRN (08:30)
[2016-10-21] MEDS ORDERED: BENZOCAINE 10% 7 GM GEL TP PRN (08:30)
[2016-10-21] MEDS ORDERED: BENZOCAINE/MENTHOL LOZENGE MM PRN (08:30)
[2016-10-21] MEDS ORDERED: LOPERAMIDE HCL 2 MG CAPSULE PO PRN (08:30)
[2016-10-21] MEDS ORDERED: ONDANSETRON HCL 4 MG TABLET PO PRN (08:30)
[2016-10-21] MEDS ORDERED: BACITRACIN 28.4 GM OINTMENT TP PRN (08:30)
[2016-10-21] MEDS ORDERED: CloNIDine HCL 0.1 MG TABLET PO PRN (08:30)
[2016-10-21] MEDS ORDERED: PETROLATUM,WHITE 71 GM JELLY TP PRN (08:30)
[2016-10-21] MEDS ORDERED: ALBUTEROL SULFATE HFA 90 MCG/PUFF 8 GM INHALER IH PRN (08:30)
[2016-10-21 08:47] LABS: BASOPHILS % (AUTO) 0.5 % (0.0-2.0); HEMATOCRIT 36.3 % (36-46); HEMOGLOBIN 11.9 g/dL (12.0-16.0); LYMPHOCYTES # (AUTO) 1.9 K/uL (1.0-4.8); LYMPHOCYTES % (AUTO) 35.8 % (22.0-44.0); MEAN CORPUSCULAR HEMOGLOBIN 29.9 pg (26.0-34.0); MEAN CORPUSCULAR HGB CONC 32.7 G/dL (31.0-37.0); MEAN CORPUSCULAR VOLUME 92 fL (80-100); MONOCYTES # (AUTO) 0.4 K/uL (0.1-1.0); MONOCYTES % (AUTO) 7.5 % (2.0-9.0); NEUTROPHILS # (AUTO) 2.7 K/uL (1.8-7.7); NEUTROPHILS % (AUTO) 51.2 % (40.0-70.0); PLATELET COUNT (AUTO) 164 K/uL (150-450); RED BLOOD CELL COUNT(AUTO) 3.97 MIL/uL (4.00-5.20); WHITE BLOOD COUNT (AUTO) 5.3 K/uL (4.5-11.0)
[2016-10-21] MEDS: CHOLECALCIFEROL (VIT D3) 1,000 UNITS TABLET PO SCH (08:51)
[2016-10-21 08:58] LABS: HEMOGLOBIN A1C 5.9 % (4.5-6.2)
[2016-10-21 09:28] LABS: ALANINE AMINOTRANSFERASE 21 U/L (12-78); ALBUMIN 3.2 g/dL (3.4-5.0); ANION GAP 7 mmol/L (8-16); ASPARTATE AMINOTRANSFERASE 13 U/L (15-37); BILIRUBIN,TOTAL 0.2 mg/dL (0.1-1.0); CALCIUM, TOTAL 8.5 mg/dL (8.8-10.5); CARBON DIOXIDE 27 mmol/L (22-29); CHLORIDE 108 mmol/L (98-107); CHOL/HDL RATIO 3.4 (3.9-5.7); CREATININE 0.64 mg/dL (0.60-1.30); GLOMERULAR FILTR. RATE CALC > 60 mL/min (>60); POTASSIUM 3.7 mmol/L (3.5-5.1); SODIUM SERUM 142 mmol/L (136-145); THYROID STIMULATING HORMONE 2.68 uIU/mL (0.36-3.74); TOTAL PROTEIN, SERUM 6.5 g/dL (6.4-8.2); UREA NITROGEN, BLOOD 11 mg/dL (7-18)
[2016-10-21 16:05] VITALS: BP 123/73
[2016-10-21] MEDS: OMEPRAZOLE 20 MG CAPSULE PO SCH (16:31)
[2016-10-21] MEDS: OLANZapine 5 MG RAPDIS TABLET PO SCH (21:02)
[2016-10-22 00:05] VITALS: BP 110/64
[2016-10-22] MEDS: OMEPRAZOLE 20 MG CAPSULE PO SCH ×2 (06:37→16:25)
[2016-10-22] MEDS: CHOLECALCIFEROL (VIT D3) 1,000 UNITS TABLET PO SCH (08:27)
[2016-10-22 08:40] VITALS: BP 139/86
[2016-10-22] MEDS: ACETAMINOPHEN 325 MG TABLET PO PRN (08:59)
[2016-10-22] MEDS: TRIAMCINOLONE 0.1% 15 GM OINTMENT TP PRN (11:23)
[2016-10-22 16:11] VITALS: BP 128/73
[2016-10-22] MEDS: OLANZapine 5 MG RAPDIS TABLET PO SCH (20:46)
[2016-10-23] MEDS: OMEPRAZOLE 20 MG CAPSULE PO SCH ×2 (06:26→16:40)
[2016-10-23 07:02] VITALS: BP 133/79
[2016-10-23 08:13] VITALS: BP 139/82
[2016-10-23] MEDS: ACETAMINOPHEN 325 MG TABLET PO PRN (08:13)
[2016-10-23 08:39] VITALS: BP 139/82
[2016-10-23] MEDS: OLANZapine 5 MG RAPDIS TABLET PO SCH ×2 (08:53→20:50)
[2016-10-23] MEDS: CHOLECALCIFEROL (VIT D3) 1,000 UNITS TABLET PO SCH (08:53)
[2016-10-23 16:10] VITALS: BP 137/75
[2016-10-24] MEDS: OMEPRAZOLE 20 MG CAPSULE PO SCH ×2 (06:22→16:39)
[2016-10-24 06:38] VITALS: BP 137/65
[2016-10-24 08:14] VITALS: BP 137/80
[2016-10-24] MEDS: OLANZapine 5 MG RAPDIS TABLET PO SCH ×2 (09:14→20:46)
[2016-10-24] MEDS: CHOLECALCIFEROL (VIT D3) 1,000 UNITS TABLET PO SCH (09:14)
[2016-10-24 16:15] VITALS: BP 139/70
[2016-10-24] MEDS: ACETAMINOPHEN 325 MG TABLET PO PRN (16:20)
[2016-10-25] MEDS: OMEPRAZOLE 20 MG CAPSULE PO SCH ×2 (06:49→16:32)
[2016-10-25 06:51] VITALS: BP 134/60
[2016-10-25 08:25] VITALS: BP 149/72
[2016-10-25] MEDS: OLANZapine 5 MG RAPDIS TABLET PO SCH ×2 (09:21→20:17)
[2016-10-25] MEDS: CHOLECALCIFEROL (VIT D3) 1,000 UNITS TABLET PO SCH (09:21)
[2016-10-25 10:20] VITALS: BP 120/60
[2016-10-25 16:12] VITALS: BP 150/70
[2016-10-25] MEDS: ACETAMINOPHEN 325 MG TABLET PO PRN (16:32)
[2016-10-25 18:00] VITALS: BP 126/65
[2016-10-26] MEDS: OMEPRAZOLE 20 MG CAPSULE PO SCH ×2 (06:02→16:42)
[2016-10-26 06:29] VITALS: BP 138/76
[2016-10-26 08:25] VITALS: BP 146/68
[2016-10-26] MEDS: OLANZapine 5 MG RAPDIS TABLET PO SCH ×2 (09:27→20:31)
[2016-10-26] MEDS: CHOLECALCIFEROL (VIT D3) 1,000 UNITS TABLET PO SCH (09:27)
[2016-10-26] MEDS: TRIAMCINOLONE 0.1% 15 GM OINTMENT TP PRN (10:31)
[2016-10-26 16:04] VITALS: BP 139/78
[2016-10-27 00:06] VITALS: BP 137/76
[2016-10-27] MEDS: OMEPRAZOLE 20 MG CAPSULE PO SCH ×2 (07:12→16:37)
[2016-10-27 08:19] VITALS: BP 133/55
[2016-10-27] MEDS: OLANZapine 5 MG RAPDIS TABLET PO SCH ×2 (08:49→20:54)
[2016-10-27] MEDS: CHOLECALCIFEROL (VIT D3) 1,000 UNITS TABLET PO SCH (08:50)
[2016-10-27 16:03] VITALS: BP 128/81
[2016-10-28 04:54] VITALS: BP 127/79
[2016-10-28] MEDS: OMEPRAZOLE 20 MG CAPSULE PO SCH ×2 (06:04→16:41)
[2016-10-28 08:03] VITALS: BP 117/65
[2016-10-28] MEDS: OLANZapine 5 MG RAPDIS TABLET PO SCH ×2 (08:18→20:42)
[2016-10-28] MEDS: CHOLECALCIFEROL (VIT D3) 1,000 UNITS TABLET PO SCH (08:24)
[2016-10-28 20:52] VITALS: BP 126/75
[2016-10-29] MEDS: OMEPRAZOLE 20 MG CAPSULE PO SCH ×2 (06:18→16:22)
[2016-10-29 06:25] VITALS: BP 140/83
[2016-10-29 07:26] VITALS: BP 135/83
[2016-10-29 08:11] VITALS: BP 137/82
[2016-10-29] MEDS: CHOLECALCIFEROL (VIT D3) 1,000 UNITS TABLET PO SCH (09:00)
[2016-10-29] MEDS: OLANZapine 5 MG RAPDIS TABLET PO SCH ×2 (09:31→21:10)
[2016-10-29] MEDS: TRIAMCINOLONE 0.1% 15 GM OINTMENT TP PRN (09:32)
[2016-10-29 16:00] VITALS: BP 138/73
[2016-10-30] MEDS: OMEPRAZOLE 20 MG CAPSULE PO SCH (06:41)
[2016-10-30 06:47] VITALS: BP 121/74
[2016-10-30 08:06] VITALS: BP 128/60
[2016-10-30] MEDS: OLANZapine 5 MG RAPDIS TABLET PO SCH (08:30)
[2016-10-30] MEDS: CHOLECALCIFEROL (VIT D3) 1,000 UNITS TABLET PO SCH (09:00)
[2016-10-30 16:03] VITALS: BP 124/67
[2016-10-30] MEDS ORDERED: OMEP20 PO (17:07)
[2016-10-30] MEDS ORDERED: OLANZapine 5 MG RAPDIS TABLET PO SCH (21:00)
== END 2016-10-30 18:00 | disposition home or self-care (01) | DRG 885 ==
LOC: B2X 17:25
PROVIDERS: ADMIT Psychiatry & Neurology Psychiatry; ATTEND Psychiatry & Neurology Psychiatry
DX: F25.0 Schizoaffective disorder, bipolar type (principal); G47.00 Insomnia, unspecified; I10 Essential (primary) hypertension; K21.9 Gastro-esophageal reflux disease without esophagitis; K59.09 Other constipation; L20.9 Atopic dermatitis, unspecified; M19.90 Unspecified osteoarthritis, unspecified site; R45.850 Homicidal ideations; E78.5 Hyperlipidemia, unspecified; E55.9 Vitamin D deficiency, unspecified; Z91.19 Patient's noncompliance with other medical treatment and regimen; Z59.0 Homelessness; Z88.5 Allergy status to narcotic agent; Z79.899 Other long term (current) drug therapy
CPT/HCPCS: 83036; 84439; 84443

== ENCOUNTER 2016-11-04 15:59 | Inpatient (IN) | payer MEDICARE ==
[~2016-11-04] VITALS: Ht 160 cm; Wt 56.3 kg
[2016-11-04] MEDS ORDERED: ZOLPIDEM TARTRATE 10 MG TABLET PO PRN (16:15)
[2016-11-04] MEDS ORDERED: QUEtiapine FUMARATE 100 MG TABLET PO PRN (16:15)
[2016-11-04] MEDS ORDERED: LORazepam 2 MG TABLET PO PRN (16:15)
[2016-11-04 16:40] VITALS: BP 146/88
[2016-11-04 18:30] VITALS: BP_SYST 138; BP_SYST 151; BP_DIAS 72
[2016-11-04] MEDS ORDERED: TRIAMCINOLONE 0.1% 15 GM CREAM TP PRN (19:30)
[2016-11-04] MEDS: OLANZapine 5 MG RAPDIS TABLET PO SCH (20:37)
[2016-11-05] MEDS: OMEPRAZOLE 20 MG CAPSULE PO SCH ×2 (06:54→16:32)
[2016-11-05 08:07] VITALS: BP 111/67
[2016-11-05 08:13] LABS: BASOPHILS % (AUTO) 0.6 % (0.0-2.0); EOSINOPHILS % (AUTO) 4.1 % (1.0-6.0); HEMATOCRIT 39.1 % (36-46); HEMOGLOBIN 12.9 g/dL (12.0-16.0); LYMPHOCYTES # (AUTO) 2.1 K/uL (1.0-4.8); LYMPHOCYTES % (AUTO) 33.8 % (22.0-44.0); MEAN CORPUSCULAR HEMOGLOBIN 29.8 pg (26.0-34.0); MEAN CORPUSCULAR HGB CONC 32.8 G/dL (31.0-37.0); MEAN CORPUSCULAR VOLUME 91 fL (80-100); MONOCYTES # (AUTO) 0.5 K/uL (0.1-1.0); MONOCYTES % (AUTO) 7.6 % (2.0-9.0); NEUTROPHILS # (AUTO) 3.4 K/uL (1.8-7.7); NEUTROPHILS % (AUTO) 53.9 % (40.0-70.0); PLATELET COUNT (AUTO) 196 K/uL (150-450); RED BLOOD CELL COUNT(AUTO) 4.32 MIL/uL (4.00-5.20); RED CELL DISTRIBUTION WIDTH 13.6 % (11.5-14.5); WHITE BLOOD COUNT (AUTO) 6.3 K/uL (4.5-11.0)
[2016-11-05 08:21] LABS: HEMOGLOBIN A1C 5.9 % (4.5-6.2)
[2016-11-05 09:12] LABS: ALANINE AMINOTRANSFERASE 22 U/L (12-78); ALBUMIN 3.8 g/dL (3.4-5.0); ANION GAP 10 mmol/L (8-16); ASPARTATE AMINOTRANSFERASE 16 U/L (15-37); BILIRUBIN,TOTAL 0.3 mg/dL (0.1-1.0); CALCIUM, TOTAL 8.7 mg/dL (8.8-10.5); CARBON DIOXIDE 26 mmol/L (22-29); CHLORIDE 103 mmol/L (98-107); CHOL/HDL RATIO 3.4 (3.9-5.7); CREATININE 0.69 mg/dL (0.60-1.30); GLOMERULAR FILTR. RATE CALC > 60 mL/min (>60); POTASSIUM 3.7 mmol/L (3.5-5.1); SODIUM SERUM 139 mmol/L (136-145); THYROID STIMULATING HORMONE 2.36 uIU/mL (0.36-3.74); TOTAL PROTEIN, SERUM 7.2 g/dL (6.4-8.2); UREA NITROGEN, BLOOD 13 mg/dL (7-18)
[2016-11-05] MEDS: PETROLATUM,WHITE 71 GM JELLY TP PRN (09:28)
[2016-11-05] MEDS ORDERED: MAGNESIUM HYDROXIDE SUSPENSION 30 ML UDCUP PO PRN (09:30)
[2016-11-05] MEDS ORDERED: BENZOCAINE/MENTHOL LOZENGE MM PRN (09:30)
[2016-11-05] MEDS ORDERED: CloNIDine HCL 0.1 MG TABLET PO PRN (09:30)
[2016-11-05] MEDS ORDERED: ONDANSETRON HCL 4 MG TABLET PO PRN (09:30)
[2016-11-05] MEDS ORDERED: BACITRACIN 28.4 GM OINTMENT TP PRN (09:30)
[2016-11-05] MEDS ORDERED: LOPERAMIDE HCL 2 MG CAPSULE PO PRN (09:30)
[2016-11-05] MEDS ORDERED: PETROLATUM,WHITE 71 GM JELLY TP PRN (09:30)
[2016-11-05] MEDS ORDERED: MAG HYDROX/AL HYDROX/SIMETH ES 30 ML SUSPENSION UDCUP PO PRN (09:30)
[2016-11-05] MEDS ORDERED: ALBUTEROL SULFATE HFA 90 MCG/PUFF 8 GM INHALER IH PRN (09:30)
[2016-11-05] MEDS ORDERED: IBUPROFEN 600 MG TABLET PO PRN (09:30)
[2016-11-05 14:30] VITALS: BP 116/70
[2016-11-05] MEDS: ACETAMINOPHEN 325 MG TABLET PO PRN (14:30)
[2016-11-05 16:12] VITALS: BP 136/76
[2016-11-05] MEDS: OLANZapine 5 MG RAPDIS TABLET PO SCH (21:25)
[2016-11-06 05:59] VITALS: BP 142/73
[2016-11-06] MEDS: OMEPRAZOLE 20 MG CAPSULE PO SCH ×2 (06:54→16:16)
[2016-11-06 16:11] VITALS: BP 133/77
[2016-11-06] MEDS: OLANZapine 5 MG RAPDIS TABLET PO SCH (21:51)
[2016-11-07 06:25] VITALS: BP 135/66
[2016-11-07] MEDS: OMEPRAZOLE 20 MG CAPSULE PO SCH ×2 (06:43→16:33)
[2016-11-07 08:15] VITALS: BP 135/87
[2016-11-07 14:10] VITALS: BP 128/84
[2016-11-07] MEDS: ACETAMINOPHEN 325 MG TABLET PO PRN (14:10)
[2016-11-07 16:08] VITALS: BP 126/69
[2016-11-07] MEDS: OLANZapine 5 MG RAPDIS TABLET PO SCH (20:38)
[2016-11-08 03:50] VITALS: BP 139/71
[2016-11-08] MEDS: OMEPRAZOLE 20 MG CAPSULE PO SCH ×2 (06:11→16:37)
[2016-11-08 08:27] VITALS: BP 140/72
[2016-11-08 16:35] VITALS: BP 134/62
[2016-11-08] MEDS: OLANZapine 5 MG RAPDIS TABLET PO SCH (21:03)
[2016-11-09] MEDS: OMEPRAZOLE 20 MG CAPSULE PO SCH ×2 (06:28→16:32)
[2016-11-09 06:29] VITALS: BP 114/61
[2016-11-09 08:08] VITALS: BP 109/64
[2016-11-09 16:08] VITALS: BP 110/62
[2016-11-09] MEDS: OLANZapine 5 MG RAPDIS TABLET PO SCH (20:33)
[2016-11-10 06:05] VITALS: BP 124/74
[2016-11-10] MEDS: OMEPRAZOLE 20 MG CAPSULE PO SCH ×2 (06:32→16:32)
[2016-11-10 08:14] VITALS: BP 125/78
[2016-11-10 16:27] VITALS: BP 121/69
[2016-11-10] MEDS: OLANZapine 5 MG RAPDIS TABLET PO SCH (21:07)
[2016-11-11] MEDS: OMEPRAZOLE 20 MG CAPSULE PO SCH ×2 (06:07→16:28)
[2016-11-11 06:41] VITALS: BP 138/70
[2016-11-11 09:44] VITALS: BP 145/98
[2016-11-11 11:03] VITALS: BP 138/78
[2016-11-11] MEDS: ACETAMINOPHEN 325 MG TABLET PO PRN (11:03)
[2016-11-11 16:14] VITALS: BP 135/78
[2016-11-11] MEDS: OLANZapine 5 MG RAPDIS TABLET PO SCH (20:40)
[2016-11-12 00:07] VITALS: BP 104/66
[2016-11-12] MEDS: OMEPRAZOLE 20 MG CAPSULE PO SCH ×2 (06:23→16:24)
[2016-11-12 08:30] VITALS: BP 120/69
[2016-11-12 16:10] VITALS: BP 115/71
[2016-11-12] MEDS: OLANZapine 5 MG RAPDIS TABLET PO SCH (20:38)
[2016-11-13 00:01] VITALS: BP 142/82
[2016-11-13] MEDS: ACETAMINOPHEN 325 MG TABLET PO PRN (00:13)
[2016-11-13] MEDS: OMEPRAZOLE 20 MG CAPSULE PO SCH ×2 (06:34→16:14)
[2016-11-13 08:17] VITALS: BP 117/75
[2016-11-13 16:00] VITALS: BP 132/76
[2016-11-13] MEDS: OLANZapine 5 MG RAPDIS TABLET PO SCH (20:47)
[2016-11-14] MEDS: OMEPRAZOLE 20 MG CAPSULE PO SCH ×2 (06:25→16:27)
[2016-11-14 06:32] VITALS: BP 117/67
[2016-11-14] MEDS: PETROLATUM,WHITE 71 GM JELLY TP PRN (06:53)
[2016-11-14 08:02] VITALS: BP 124/72
[2016-11-14 16:19] VITALS: BP 135/67
[2016-11-14] MEDS: OLANZapine 5 MG RAPDIS TABLET PO SCH (20:08)
[2016-11-15 04:58] VITALS: BP 131/71
[2016-11-15] MEDS: OMEPRAZOLE 20 MG CAPSULE PO SCH ×2 (06:06→16:23)
[2016-11-15 08:07] VITALS: BP 164/87
[2016-11-15] MEDS: MULTIVITAMINS, THERAPEUTIC TABLET PO SCH (09:00)
[2016-11-15 10:00] VITALS: BP 136/65
[2016-11-15 16:20] VITALS: BP_SYST 116; BP_SYST 139; BP_DIAS 58; BP_DIAS 74
[2016-11-15] MEDS: OLANZapine 5 MG RAPDIS TABLET PO SCH (20:44)
[2016-11-15] MEDS: ACETAMINOPHEN 325 MG TABLET PO PRN (23:59)
[2016-11-16 01:03] VITALS: BP 139/76
[2016-11-16] MEDS: OMEPRAZOLE 20 MG CAPSULE PO SCH ×2 (06:50→16:28)
[2016-11-16] MEDS: MULTIVITAMINS, THERAPEUTIC TABLET PO SCH (08:20)
[2016-11-16 08:36] VITALS: BP 118/56
[2016-11-16 16:25] VITALS: BP 147/78
[2016-11-16] MEDS: OLANZapine 5 MG RAPDIS TABLET PO SCH (20:46)
[2016-11-17] MEDS: OMEPRAZOLE 20 MG CAPSULE PO SCH ×2 (06:01→16:35)
[2016-11-17 08:10] VITALS: BP 130/67
[2016-11-17] MEDS: MULTIVITAMINS, THERAPEUTIC TABLET PO SCH (08:20)
[2016-11-17 16:14] VITALS: BP 124/73
[2016-11-17] MEDS: OLANZapine 5 MG RAPDIS TABLET PO SCH (20:34)
[2016-11-18] MEDS: OMEPRAZOLE 20 MG CAPSULE PO SCH (05:42)
[2016-11-18 06:09] VITALS: BP 140/78
[2016-11-18 08:23] VITALS: BP 138/84
[2016-11-18] MEDS: MULTIVITAMINS, THERAPEUTIC TABLET PO SCH (08:40)
== END 2016-11-18 11:15 | disposition home or self-care (01) | DRG 885 ==
LOC: B2X 16:18 → EDSTATUS 16:54
PROVIDERS: ADMIT Psychiatry & Neurology Psychiatry; ATTEND Psychiatry & Neurology Psychiatry
DX: F25.0 Schizoaffective disorder, bipolar type (principal); R45.851 Suicidal ideations; K21.9 Gastro-esophageal reflux disease without esophagitis; I10 Essential (primary) hypertension; E55.9 Vitamin D deficiency, unspecified; M19.90 Unspecified osteoarthritis, unspecified site; E78.5 Hyperlipidemia, unspecified; G47.00 Insomnia, unspecified; F22 Delusional disorders; K59.00 Constipation, unspecified; L20.9 Atopic dermatitis, unspecified; Z53.29 Procedure and treatment not carried out because of patient's decision for other reasons; Z59.0 Homelessness; Z88.6 Allergy status to analgesic agent; Z56.0 Unemployment, unspecified; Z91.011 Allergy to milk products; Z91.14 Patient's other noncompliance with medication regimen
CPT/HCPCS: 83036; 84439; 84443; 87081

== ENCOUNTER 2017-10-07 18:10 | Inpatient (IN) | payer MEDICARE, MEDICAID ==
[~2017-10-07] VITALS: Ht 160 cm; Wt 57.2 kg
[~2017-10-07 18:10] MED LIST changes: +OLAN5TAB40 PO; -OLAN5Z PO
[2017-10-07] MEDS ORDERED: ZOLPIDEM TARTRATE 5 MG TABLET PO PRN (20:00)
[2017-10-07] MEDS ORDERED: LORazepam 0.5 MG TABLET PO PRN (20:00)
[2017-10-07 20:21] VITALS: BP 157/73
[2017-10-07] MEDS: OLANZapine 5 MG RAPDIS TABLET PO SCH (20:54)
[2017-10-07 20:55] VITALS: BP 143/82
[2017-10-07] MEDS: DiphenhydrAMINE HCL 25 MG CAPSULE PO SCH (21:00)
[2017-10-07] MEDS ORDERED: BACITRACIN 28.4 GM OINTMENT TP PRN (21:15)
[2017-10-07] MEDS ORDERED: IBUPROFEN 600 MG TABLET PO PRN (21:15)
[2017-10-07] MEDS ORDERED: MAG HYDROX/AL HYDROX/SIMETH ES 30 ML SUSPENSION UDCUP PO PRN (21:15)
[2017-10-07] MEDS ORDERED: CloNIDine HCL 0.1 MG TABLET PO PRN (21:15)
[2017-10-07] MEDS ORDERED: LOPERAMIDE HCL 2 MG CAPSULE PO PRN (21:15)
[2017-10-07] MEDS ORDERED: ACETAMINOPHEN 325 MG TABLET PO PRN (21:15)
[2017-10-07] MEDS ORDERED: BENZOCAINE/MENTHOL LOZENGE MM PRN (21:15)
[2017-10-07] MEDS ORDERED: PETROLATUM,WHITE 71 GM JELLY TP PRN (21:15)
[2017-10-07] MEDS ORDERED: ALBUTEROL SULFATE HFA 90 MCG/PUFF 8 GM INHALER IH PRN (21:15)
[2017-10-07] MEDS ORDERED: ONDANSETRON HCL 4 MG TABLET PO PRN (21:15)
[2017-10-07] MEDS ORDERED: MAGNESIUM HYDROXIDE SUSPENSION 30 ML UDCUP PO PRN (21:15)
[2017-10-07 22:00] VITALS: BP 138/85
[2017-10-08] MEDS: OMEPRAZOLE 20 MG CAPSULE PO SCH (08:12)
[2017-10-08] MEDS: DOCUSATE SODIUM 100 MG CAPSULE PO SCH (08:12)
[2017-10-08 08:19] VITALS: BP 135/67
[2017-10-08 08:27] LABS: BASOPHILS % (AUTO) 0.9 % (0.0-2.0); EOSINOPHILS % (AUTO) 5.4 % (1.0-6.0); HEMATOCRIT 38.7 % (36-46); LYMPHOCYTES # (AUTO) 2.3 K/uL (1.0-4.8); LYMPHOCYTES % (AUTO) 40.4 % (22.0-44.0); MEAN CORPUSCULAR HEMOGLOBIN 30.3 pg (26.0-34.0); MEAN CORPUSCULAR HGB CONC 33.6 G/dL (31.0-37.0); MEAN CORPUSCULAR VOLUME 90 fL (80-100); MONOCYTES # (AUTO) 0.4 K/uL (0.1-1.0); NEUTROPHILS # (AUTO) 2.6 K/uL (1.8-7.7); NEUTROPHILS % (AUTO) 46.3 % (40.0-70.0); PLATELET COUNT (AUTO) 169 K/uL (150-450); RED BLOOD CELL COUNT(AUTO) 4.28 MIL/uL (4.00-5.20); RED CELL DISTRIBUTION WIDTH 13.7 % (11.5-14.5)
[2017-10-08 09:19] LABS: HEMOGLOBIN A1C 5.6 % (4.5-6.2)
[2017-10-08 09:37] LABS: ALANINE AMINOTRANSFERASE 20 U/L (12-78); ALBUMIN 3.4 g/dL (3.4-5.0); ALKALINE PHOSPHATASE 118 U/L (46-116); ANION GAP 7 mmol/L (8-16); ASPARTATE AMINOTRANSFERASE 17 U/L (15-37); BILIRUBIN,TOTAL 0.3 mg/dL (0.1-1.0); CALCIUM, TOTAL 8.7 mg/dL (8.8-10.5); CARBON DIOXIDE 28 mmol/L (22-29); CHLORIDE 108 mmol/L (98-107); CHOL/HDL RATIO 3.5 (3.9-5.7); CHOLESTEROL 177 mg/dL (131-200); CREATININE 0.66 mg/dL (0.60-1.30); GLOMERULAR FILTR. RATE CALC > 60 mL/min (>60); GLUCOSE,RANDOM 75 mg/dL (70-110); HCG,QUANTITATIVE 2 mIU/mL (0-6); HDL CHOLESTEROL 50 mg/dL (40-60); LDL CHOL (CALC.) 99 mg/dL (0-130); POTASSIUM 3.6 mmol/L (3.5-5.1); SODIUM SERUM 143 mmol/L (136-145); TOTAL PROTEIN, SERUM 6.7 g/dL (6.4-8.2); TRIGLYCERIDES 138 mg/dL (15-150); UREA NITROGEN, BLOOD 13 mg/dL (7-18)
[2017-10-08 16:12] VITALS: BP 134/61
[2017-10-08] MEDS ORDERED: HYDROCORTISONE 0.5% 30 GM CREAM TP SCH (19:00)
[2017-10-08] MEDS: OLANZapine 5 MG RAPDIS TABLET PO SCH (20:35)
[2017-10-08] MEDS: DiphenhydrAMINE HCL 25 MG CAPSULE PO SCH (20:36)
[2017-10-09 01:01] VITALS: BP 131/68
[2017-10-09] MEDS: OMEPRAZOLE 20 MG CAPSULE PO SCH (08:26)
[2017-10-09] MEDS: DOCUSATE SODIUM 100 MG CAPSULE PO SCH (08:26)
[2017-10-09] MEDS: HYDROCORTISONE 0.5% 30 GM CREAM TP SCH ×2 (08:31→16:42)
[2017-10-09 08:35] VITALS: BP 145/62
[2017-10-09 16:19] VITALS: BP 140/79
[2017-10-09] MEDS: OLANZapine 5 MG RAPDIS TABLET PO SCH (20:21)
[2017-10-10 06:04] VITALS: BP 180/110
[2017-10-10 06:43] VITALS: BP 155/92
[2017-10-10] MEDS: OMEPRAZOLE 20 MG CAPSULE PO SCH (08:16)
[2017-10-10] MEDS: DOCUSATE SODIUM 100 MG CAPSULE PO SCH (08:25)
[2017-10-10] MEDS: HYDROCORTISONE 0.5% 30 GM CREAM TP SCH ×2 (08:25→17:22)
[2017-10-10] MEDS ORDERED: LISINOPRIL 20 MG TABLET PO SCH (09:00)
[2017-10-10 09:15] VITALS: BP 121/85
[2017-10-10] MEDS ORDERED: LISINOPRIL 10 MG TABLET PO ONE (11:00)
[2017-10-10] MEDS ORDERED: LORazepam 2 MG/ML VIAL ONE (11:07)
[2017-10-10] MEDS ORDERED: LORazepam 2 MG/ML VIAL IM ONE (11:15)
[2017-10-10 11:45] VITALS: BP 138/79
[2017-10-10 16:47] VITALS: BP 149/83
[2017-10-10 17:42] VITALS: BP 135/83
[2017-10-10] MEDS ORDERED: IBUPROFEN 600 MG TABLET PO PRN (20:45)
[2017-10-10] MEDS: DiphenhydrAMINE HCL 25 MG CAPSULE PO SCH (21:00)
[2017-10-10] MEDS: OLANZapine 5 MG RAPDIS TABLET PO SCH (21:00)
[2017-10-11 01:51] VITALS: BP 148/106
[2017-10-11 06:15] VITALS: BP 118/60
[2017-10-11] MEDS: AmLODIPine BESYLATE 5 MG TABLET PO SCH (08:37)
[2017-10-11] MEDS: OMEPRAZOLE 20 MG CAPSULE PO SCH (08:37)
[2017-10-11] MEDS: DOCUSATE SODIUM 100 MG CAPSULE PO SCH (08:43)
[2017-10-11] MEDS: HYDROCORTISONE 0.5% 30 GM CREAM TP SCH ×2 (08:44→16:12)
[2017-10-11 08:46] VITALS: BP 123/76
[2017-10-11 16:20] VITALS: BP 128/85
[2017-10-11] MEDS: OLANZapine 5 MG RAPDIS TABLET PO SCH (20:15)
[2017-10-11] MEDS: DiphenhydrAMINE HCL 25 MG CAPSULE PO SCH (20:19)
[2017-10-12 08:40] VITALS: BP 120/60
[2017-10-12] MEDS: OLANZapine 5 MG RAPDIS TABLET PO SCH ×2 (08:56→20:54)
[2017-10-12] MEDS: AmLODIPine BESYLATE 5 MG TABLET PO SCH (08:56)
[2017-10-12] MEDS: OMEPRAZOLE 20 MG CAPSULE PO SCH (08:56)
[2017-10-12] MEDS: HYDROCORTISONE 0.5% 30 GM CREAM TP SCH ×2 (08:57→17:06)
[2017-10-12] MEDS: DOCUSATE SODIUM 100 MG CAPSULE PO SCH (09:00)
[2017-10-12 16:13] VITALS: BP 103/62
[2017-10-12] MEDS: DiphenhydrAMINE HCL 25 MG CAPSULE PO SCH (20:55)
[2017-10-13 08:30] VITALS: BP 137/60
[2017-10-13] MEDS: DOCUSATE SODIUM 100 MG CAPSULE PO SCH (09:00)
[2017-10-13] MEDS: OLANZapine 5 MG RAPDIS TABLET PO SCH ×2 (09:13→20:44)
[2017-10-13] MEDS: OMEPRAZOLE 20 MG CAPSULE PO SCH (09:13)
[2017-10-13] MEDS: AmLODIPine BESYLATE 5 MG TABLET PO SCH (09:13)
[2017-10-13] MEDS: HYDROCORTISONE 0.5% 30 GM CREAM TP SCH ×2 (09:14→16:36)
[2017-10-14 07:04] VITALS: BP 130/86
[2017-10-14] MEDS: DOCUSATE SODIUM 100 MG CAPSULE PO SCH (08:39)
[2017-10-14] MEDS: AmLODIPine BESYLATE 5 MG TABLET PO SCH (08:39)
[2017-10-14] MEDS: OLANZapine 5 MG RAPDIS TABLET PO SCH ×2 (08:39→21:00)
[2017-10-14] MEDS: OMEPRAZOLE 20 MG CAPSULE PO SCH (08:39)
[2017-10-14] MEDS: HYDROCORTISONE 0.5% 30 GM CREAM TP SCH ×2 (08:39→16:39)
[2017-10-15 07:25] VITALS: BP 139/82
[2017-10-15] MEDS: OMEPRAZOLE 20 MG CAPSULE PO SCH (09:00)
[2017-10-15] MEDS: AmLODIPine BESYLATE 5 MG TABLET PO SCH (09:00)
[2017-10-15] MEDS: DOCUSATE SODIUM 100 MG CAPSULE PO SCH (09:00)
[2017-10-15] MEDS: OLANZapine 5 MG RAPDIS TABLET PO SCH ×2 (09:00→20:49)
[2017-10-15] MEDS: HYDROCORTISONE 0.5% 30 GM CREAM TP SCH ×2 (10:12→16:43)
[2017-10-15 18:14] VITALS: BP 147/88
[2017-10-16 08:12] VITALS: BP 147/88
[2017-10-16] MEDS: OLANZapine 5 MG RAPDIS TABLET PO SCH ×2 (09:00→20:58)
[2017-10-16] MEDS: AmLODIPine BESYLATE 5 MG TABLET PO SCH (09:00)
[2017-10-16] MEDS: OMEPRAZOLE 20 MG CAPSULE PO SCH (09:00)
[2017-10-16] MEDS: DOCUSATE SODIUM 100 MG CAPSULE PO SCH (09:00)
[2017-10-16] MEDS: HYDROCORTISONE 0.5% 30 GM CREAM TP SCH ×2 (09:19→16:34)
[2017-10-16 16:28] VITALS: BP 152/89
[2017-10-17 06:30] VITALS: BP 137/78
[2017-10-17 08:42] VITALS: BP 131/72
[2017-10-17] MEDS: HYDROCORTISONE 0.5% 30 GM CREAM TP SCH ×2 (09:00→16:18)
[2017-10-17] MEDS: DOCUSATE SODIUM 100 MG CAPSULE PO SCH (09:00)
[2017-10-17] MEDS: OLANZapine 5 MG RAPDIS TABLET PO SCH ×2 (09:00→20:35)
[2017-10-17] MEDS: AmLODIPine BESYLATE 5 MG TABLET PO SCH (09:00)
[2017-10-17] MEDS: OMEPRAZOLE 20 MG CAPSULE PO SCH (09:00)
[2017-10-17 16:39] VITALS: BP 137/77
[2017-10-18 08:32] VITALS: BP 140/84
[2017-10-18] MEDS: LISINOPRIL 10 MG TABLET PO SCH (09:00)
[2017-10-18] MEDS: OMEPRAZOLE 20 MG CAPSULE PO SCH ×2 (09:00→21:04)
[2017-10-18] MEDS: DOCUSATE SODIUM 100 MG CAPSULE PO SCH (09:00)
[2017-10-18] MEDS: OLANZapine 5 MG RAPDIS TABLET PO SCH ×2 (09:00→21:48)
[2017-10-18] MEDS: HYDROCORTISONE 0.5% 30 GM CREAM TP SCH ×2 (09:15→16:42)
[2017-10-18] MEDS: CYANOCOBALAMIN 100 MCG TABLET PO SCH (12:33)
[2017-10-18 16:25] VITALS: BP 147/72
[2017-10-18] MEDS ORDERED: OMEPRAZOLE 20 MG CAPSULE PO SCH (19:00)
[2017-10-19 08:34] VITALS: BP 146/77
[2017-10-19] MEDS: DOCUSATE SODIUM 100 MG CAPSULE PO SCH (09:00)
[2017-10-19] MEDS: CYANOCOBALAMIN 100 MCG TABLET PO SCH (09:15)
[2017-10-19] MEDS: OLANZapine 5 MG RAPDIS TABLET PO SCH ×2 (09:16→21:17)
[2017-10-19] MEDS: HYDROCORTISONE 0.5% 30 GM CREAM TP SCH ×2 (09:16→16:44)
[2017-10-19] MEDS: LISINOPRIL 10 MG TABLET PO SCH (09:16)
[2017-10-19 16:19] VITALS: BP 138/86
[2017-10-19] MEDS: OMEPRAZOLE 20 MG CAPSULE PO SCH (20:18)
[2017-10-20 08:00] VITALS: BP 140/77
[2017-10-20] MEDS: OLANZapine 5 MG RAPDIS TABLET PO SCH ×2 (08:40→21:18)
[2017-10-20] MEDS: LISINOPRIL 10 MG TABLET PO SCH (08:40)
[2017-10-20] MEDS: CYANOCOBALAMIN 100 MCG TABLET PO SCH (08:41)
[2017-10-20] MEDS: HYDROCORTISONE 0.5% 30 GM CREAM TP SCH ×2 (08:41→16:34)
[2017-10-20] MEDS: DOCUSATE SODIUM 100 MG CAPSULE PO SCH (08:45)
[2017-10-20 16:14] VITALS: BP 137/83
[2017-10-20] MEDS: OMEPRAZOLE 20 MG CAPSULE PO SCH (20:23)
[2017-10-21 08:20] VITALS: BP 138/77
[2017-10-21] MEDS: LISINOPRIL 10 MG TABLET PO SCH (08:23)
[2017-10-21] MEDS: OLANZapine 5 MG RAPDIS TABLET PO SCH ×2 (08:23→20:39)
[2017-10-21] MEDS: CYANOCOBALAMIN 100 MCG TABLET PO SCH (08:23)
[2017-10-21] MEDS: HYDROCORTISONE 0.5% 30 GM CREAM TP SCH ×2 (08:24→16:47)
[2017-10-21 16:21] VITALS: BP 140/76
[2017-10-21] MEDS ORDERED: LIDOCAINE HCL 5% TRANSDERMAL PATCH TD SCH (16:30)
[2017-10-21] MEDS: OMEPRAZOLE 20 MG CAPSULE PO SCH (16:37)
[2017-10-21] MEDS ORDERED: -LIDODERM PATCH NOTE- MISC SCH (21:00)
[2017-10-22] MEDS: OMEPRAZOLE 20 MG CAPSULE PO SCH (06:34)
[2017-10-22 07:10] VITALS: BP 136/79
[2017-10-22 08:00] VITALS: BP 140/74
[2017-10-22] MEDS: CYANOCOBALAMIN 100 MCG TABLET PO SCH (08:45)
[2017-10-22] MEDS: OLANZapine 5 MG RAPDIS TABLET PO SCH (08:45)
[2017-10-22] MEDS: LISINOPRIL 10 MG TABLET PO SCH (08:45)
[2017-10-22] MEDS: HYDROCORTISONE 0.5% 30 GM CREAM TP SCH (08:56)
[2017-10-22] MEDS ORDERED: LIDOCAINE HCL 5% TRANSDERMAL PATCH TD SCH (09:00)
[2017-10-22] MEDS ORDERED: OLAN5TAB40 PO ×2 (10:00)
[2017-10-22] MEDS ORDERED: OMEP20 PO (10:07)
[2017-10-22] MEDS ORDERED: HC530C TP (10:07)
[2017-10-22] MEDS ORDERED: LISI-661 PO (10:07)
[2017-10-22] MEDS ORDERED: -LIDODERM PATCH NOTE- MISC SCH (21:00)
== END 2017-10-22 14:00 | disposition home or self-care (01) | DRG 885 ==
LOC: B2X 19:30 → UNDODISIN 10-22 12:00
PROVIDERS: ADMIT Psychiatry & Neurology Psychiatry; ATTEND Psychiatry & Neurology Psychiatry
DX: F25.1 Schizoaffective disorder, depressive type (principal); R45.851 Suicidal ideations; Z59.0 Homelessness; E55.9 Vitamin D deficiency, unspecified; F41.9 Anxiety disorder, unspecified; G47.00 Insomnia, unspecified; I10 Essential (primary) hypertension; K21.9 Gastro-esophageal reflux disease without esophagitis; K59.00 Constipation, unspecified; M19.90 Unspecified osteoarthritis, unspecified site; Z91.14 Patient's other noncompliance with medication regimen; Z88.8 Allergy status to other drugs, medicaments and biological substances
CPT/HCPCS: 82652; 83036; 84443; J2060

== ENCOUNTER 2017-11-30 23:43 | Inpatient (IN) | payer MEDICARE, MEDICAID ==
[~2017-11-30] VITALS: Ht 162.6 cm; Wt 58.8 kg
[~2017-11-30 23:43] MED LIST changes: +HC530C TP; +LISI-661 PO
[2017-12-01] MEDS ORDERED: LORazepam 1 MG TABLET PO PRN (02:45)
[2017-12-01] MEDS ORDERED: ZOLPIDEM TARTRATE 10 MG TABLET PO PRN (02:45)
[2017-12-01] MEDS ORDERED: OLANZapine 5 MG RAPDIS TABLET PO PRN (02:45)
[2017-12-01 06:17] VITALS: BP 151/86
[2017-12-01 08:00] VITALS: BP 145/75
[2017-12-01 08:33] LABS: HEMOGLOBIN A1C 5.7 % (4.5-6.2)
[2017-12-01 08:37] LABS: ALANINE AMINOTRANSFERASE 19 U/L (12-78); ALBUMIN 3.7 g/dL (3.4-5.0); ALKALINE PHOSPHATASE 134 U/L (46-116); ANION GAP 6 mmol/L (8-16); ASPARTATE AMINOTRANSFERASE 19 U/L (15-37); BILIRUBIN,TOTAL 0.3 mg/dL (0.1-1.0); CALCIUM, TOTAL 8.9 mg/dL (8.8-10.5); CARBON DIOXIDE 30 mmol/L (22-29); CHLORIDE 105 mmol/L (98-107); CHOL/HDL RATIO 3.6 (3.9-5.7); CHOLESTEROL 192 mg/dL (131-200); CREATININE 0.63 mg/dL (0.60-1.30); FREE T4 (FREE THYROXINE) 1.01 ng/dL (0.76-1.46); GLUCOSE,RANDOM 87 mg/dL (70-110); HDL CHOLESTEROL 54 mg/dL (40-60); LDL CHOL (CALC.) 121 mg/dL (0-130); POTASSIUM 3.9 mmol/L (3.5-5.1); SODIUM SERUM 141 mmol/L (136-145); THYROID STIMULATING HORMONE 2.37 uIU/mL (0.36-3.74); TOTAL PROTEIN, SERUM 7.2 g/dL (6.4-8.2); TRIGLYCERIDES 86 mg/dL (15-150); UREA NITROGEN, BLOOD 17 mg/dL (7-18)
[2017-12-01 08:38] LABS: GLOMERULAR FILTR. RATE CALC > 60 mL/min (>60)
[2017-12-01 18:42] VITALS: BP 156/85
[2017-12-02 00:15] VITALS: BP 168/80
[2017-12-02 07:12] LABS: BASOPHILS % (AUTO) 0.7 % (0.0-2.0); EOSINOPHILS % (AUTO) 4.8 % (1.0-6.0); HEMATOCRIT 37.8 % (36-46); HEMOGLOBIN 13.1 g/dL (12.0-16.0); LYMPHOCYTES # (AUTO) 1.8 K/uL (1.0-4.8); LYMPHOCYTES % (AUTO) 30.4 % (22.0-44.0); MEAN CORPUSCULAR HEMOGLOBIN 30.9 pg (26.0-34.0); MEAN CORPUSCULAR HGB CONC 34.6 G/dL (31.0-37.0); MEAN CORPUSCULAR VOLUME 89 fL (80-100); MONOCYTES # (AUTO) 0.4 K/uL (0.1-1.0); MONOCYTES % (AUTO) 7.6 % (2.0-9.0); NEUTROPHILS # (AUTO) 3.3 K/uL (1.8-7.7); NEUTROPHILS % (AUTO) 56.5 % (40.0-70.0); PLATELET COUNT (AUTO) 187 K/uL (150-450); RED BLOOD CELL COUNT(AUTO) 4.23 MIL/uL (4.00-5.20); RED CELL DISTRIBUTION WIDTH 13.8 % (11.5-14.5)
[2017-12-02] MEDS: LISINOPRIL 10 MG TABLET PO SCH (08:15)
[2017-12-02] MEDS: HYDROCORTISONE 0.5% 30 GM CREAM TP SCH ×2 (08:16→17:18)
[2017-12-02 09:07] VITALS: BP 156/80
[2017-12-02 17:50] VITALS: BP 146/83
[2017-12-02] MEDS: DiphenhydrAMINE HCL 25 MG CAPSULE PO SCH ×2 (21:00→22:09)
[2017-12-02] MEDS: OLANZapine 5 MG RAPDIS TABLET PO SCH ×2 (21:00→22:09)
[2017-12-03] MEDS: HYDROCORTISONE 0.5% 30 GM CREAM TP SCH ×2 (08:22→16:38)
[2017-12-03] MEDS: LISINOPRIL 10 MG TABLET PO SCH (08:23)
[2017-12-03 09:12] VITALS: BP 156/72
[2017-12-03 17:55] VITALS: BP 151/81
[2017-12-03] MEDS: OLANZapine 5 MG RAPDIS TABLET PO SCH (20:23)
[2017-12-03] MEDS: DiphenhydrAMINE HCL 25 MG CAPSULE PO SCH (20:25)
[2017-12-04] MEDS: LISINOPRIL 10 MG TABLET PO SCH (07:47)
[2017-12-04] MEDS: HYDROCORTISONE 0.5% 30 GM CREAM TP SCH ×2 (07:48→16:01)
[2017-12-04 10:05] VITALS: BP 168/80
[2017-12-04 17:35] VITALS: BP 146/78
[2017-12-04] MEDS: DiphenhydrAMINE HCL 25 MG CAPSULE PO SCH (20:31)
[2017-12-04] MEDS: OLANZapine 5 MG RAPDIS TABLET PO SCH (20:31)
[2017-12-05] MEDS ORDERED: ONDANSETRON HCL 4 MG TABLET PO PRN (07:30)
[2017-12-05] MEDS ORDERED: CloNIDine HCL 0.1 MG TABLET PO PRN (07:30)
[2017-12-05] MEDS ORDERED: ALBUTEROL SULFATE HFA 90 MCG/PUFF 8 GM INHALER IH PRN (07:30)
[2017-12-05] MEDS ORDERED: IBUPROFEN 600 MG TABLET PO PRN (07:30)
[2017-12-05] MEDS ORDERED: BACITRACIN 28.4 GM OINTMENT TP PRN (07:30)
[2017-12-05] MEDS ORDERED: MAG HYDROX/AL HYDROX/SIMETH ES 30 ML SUSPENSION UDCUP PO PRN (07:30)
[2017-12-05] MEDS ORDERED: PETROLATUM,WHITE 71 GM JELLY TP PRN (07:30)
[2017-12-05] MEDS ORDERED: LOPERAMIDE HCL 2 MG CAPSULE PO PRN (07:30)
[2017-12-05] MEDS ORDERED: BENZOCAINE/MENTHOL LOZENGE MM PRN (07:30)
[2017-12-05] MEDS ORDERED: MAGNESIUM HYDROXIDE SUSPENSION 30 ML UDCUP PO PRN (07:30)
[2017-12-05 07:40] VITALS: BP 141/86
[2017-12-05] MEDS: HYDROCORTISONE 0.5% 30 GM CREAM TP SCH ×2 (07:40→16:27)
[2017-12-05] MEDS: ACETAMINOPHEN 325 MG TABLET PO PRN (07:40)
[2017-12-05] MEDS: LISINOPRIL 20 MG TABLET PO SCH (07:41)
[2017-12-05] MEDS: DOCUSATE SODIUM 100 MG CAPSULE PO SCH (07:41)
[2017-12-05] MEDS: OMEPRAZOLE 20 MG CAPSULE PO SCH (07:42)
[2017-12-05 08:40] VITALS: BP_SYST 142; BP_SYST 161; BP_DIAS 82; BP_DIAS 86
[2017-12-05 17:00] VITALS: BP 165/64
[2017-12-05] MEDS: DiphenhydrAMINE HCL 25 MG CAPSULE PO SCH (21:09)
[2017-12-05] MEDS: OLANZapine 5 MG RAPDIS TABLET PO SCH (21:09)
[2017-12-06] MEDS: OMEPRAZOLE 20 MG CAPSULE PO SCH (08:19)
[2017-12-06] MEDS: HYDROCORTISONE 0.5% 30 GM CREAM TP SCH ×2 (08:19→16:12)
[2017-12-06] MEDS: LISINOPRIL 20 MG TABLET PO SCH (08:19)
[2017-12-06 08:50] VITALS: BP 145/74
[2017-12-06] MEDS: DOCUSATE SODIUM 100 MG CAPSULE PO SCH (09:00)
[2017-12-06 09:48] VITALS: BP 140/79
[2017-12-06] MEDS: ACETAMINOPHEN 325 MG TABLET PO PRN (09:49)
[2017-12-06] MEDS: DiphenhydrAMINE HCL 25 MG CAPSULE PO SCH ×2 (20:53→21:00)
[2017-12-06] MEDS: OLANZapine 5 MG RAPDIS TABLET PO SCH (20:54)
[2017-12-06 22:04] VITALS: BP 156/78
[2017-12-07 02:52] VITALS: BP 141/81
[2017-12-07] MEDS: ACETAMINOPHEN 325 MG TABLET PO PRN (02:52)
[2017-12-07 08:30] VITALS: BP 147/76
[2017-12-07] MEDS: DOCUSATE SODIUM 100 MG CAPSULE PO SCH (09:00)
[2017-12-07] MEDS: HYDROCORTISONE 0.5% 30 GM CREAM TP SCH ×2 (09:00→19:44)
[2017-12-07] MEDS: OMEPRAZOLE 20 MG CAPSULE PO SCH (09:13)
[2017-12-07] MEDS: LISINOPRIL 20 MG TABLET PO SCH (09:13)
[2017-12-07] MEDS: OLANZapine 5 MG RAPDIS TABLET PO SCH (20:12)
[2017-12-07 21:04] VITALS: BP 128/85
[2017-12-08] MEDS: OMEPRAZOLE 20 MG CAPSULE PO SCH (08:52)
[2017-12-08] MEDS: LISINOPRIL 20 MG TABLET PO SCH (08:52)
[2017-12-08] MEDS: HYDROCORTISONE 0.5% 30 GM CREAM TP SCH ×2 (08:53→16:28)
[2017-12-08 17:00] VITALS: BP 146/77
[2017-12-08] MEDS: OLANZapine 5 MG RAPDIS TABLET PO SCH (20:00)
[2017-12-09] MEDS: HYDROCORTISONE 0.5% 30 GM CREAM TP SCH ×2 (09:00→17:11)
[2017-12-09] MEDS: OMEPRAZOLE 20 MG CAPSULE PO SCH (09:00)
[2017-12-09] MEDS: LISINOPRIL 20 MG TABLET PO SCH (09:00)
[2017-12-09 09:18] VITALS: BP 129/69
[2017-12-09] MEDS: DICLOFENAC SODIUM 1% 100 GM GEL [2GM] TP SCH (17:48)
[2017-12-09 19:26] VITALS: BP 160/82
[2017-12-09] MEDS: OLANZapine 5 MG RAPDIS TABLET PO SCH (20:05)
[2017-12-10] MEDS: OMEPRAZOLE 20 MG CAPSULE PO SCH (08:06)
[2017-12-10] MEDS: HYDROCORTISONE 0.5% 30 GM CREAM TP SCH ×2 (08:06→17:00)
[2017-12-10] MEDS: LISINOPRIL 20 MG TABLET PO SCH (08:06)
[2017-12-10] MEDS: DICLOFENAC SODIUM 1% 100 GM GEL [2GM] TP SCH ×2 (08:07→17:00)
[2017-12-10 13:20] VITALS: BP 139/80
[2017-12-10 16:12] VITALS: BP 141/74
[2017-12-10] MEDS: OLANZapine 5 MG RAPDIS TABLET PO SCH (20:26)
[2017-12-11 01:17] VITALS: BP 152/84
[2017-12-11 09:07] VITALS: BP 130/65
[2017-12-11] MEDS: OMEPRAZOLE 20 MG CAPSULE PO SCH (09:11)
[2017-12-11] MEDS: LISINOPRIL 20 MG TABLET PO SCH (09:11)
[2017-12-11] MEDS: DICLOFENAC SODIUM 1% 100 GM GEL [2GM] TP SCH ×2 (09:11→17:00)
[2017-12-11] MEDS: HYDROCORTISONE 0.5% 30 GM CREAM TP SCH ×2 (09:11→17:00)
[2017-12-11 16:41] VITALS: BP 144/88
[2017-12-11] MEDS: OLANZapine 5 MG RAPDIS TABLET PO SCH (20:18)
[2017-12-12] MEDS: OMEPRAZOLE 20 MG CAPSULE PO SCH (08:35)
[2017-12-12] MEDS: HYDROCORTISONE 0.5% 30 GM CREAM TP SCH ×2 (08:35→17:00)
[2017-12-12] MEDS: LISINOPRIL 20 MG TABLET PO SCH (08:35)
[2017-12-12] MEDS: DICLOFENAC SODIUM 1% 100 GM GEL [2GM] TP SCH ×2 (08:36→17:00)
[2017-12-12 09:46] VITALS: BP 147/91
[2017-12-12] MEDS: ACETAMINOPHEN 325 MG TABLET PO PRN (09:46)
[2017-12-12 16:50] VITALS: BP 152/77
[2017-12-12] MEDS: OLANZapine 5 MG RAPDIS TABLET PO SCH (23:00)
[2017-12-13] VITALS: BP 151/74
[2017-12-13 08:00] VITALS: BP 166/86
[2017-12-13] MEDS: OMEPRAZOLE 20 MG CAPSULE PO SCH (09:42)
[2017-12-13] MEDS: LISINOPRIL 20 MG TABLET PO SCH (09:42)
[2017-12-13] MEDS: DICLOFENAC SODIUM 1% 100 GM GEL [2GM] TP SCH ×2 (09:43→17:00)
[2017-12-13] MEDS: HYDROCORTISONE 0.5% 30 GM CREAM TP SCH ×2 (09:43→17:25)
[2017-12-13 13:15] VITALS: BP 146/66
[2017-12-13] MEDS: ACETAMINOPHEN 325 MG TABLET PO PRN (13:15)
[2017-12-13 17:06] VITALS: BP 148/73
[2017-12-13] MEDS: OLANZapine 5 MG RAPDIS TABLET PO SCH (20:04)
[2017-12-14] MEDS ORDERED: LISINOPRIL 20 MG TABLET PO SCH (09:00)
[2017-12-14] MEDS: OMEPRAZOLE 20 MG CAPSULE PO SCH (09:21)
[2017-12-14] MEDS: HYDROCORTISONE 0.5% 30 GM CREAM TP SCH (09:21)
[2017-12-14] MEDS: DICLOFENAC SODIUM 1% 100 GM GEL [2GM] TP SCH (09:21)
== END 2017-12-14 11:00 | disposition home or self-care (01) | DRG 885 ==
LOC: EDSTATUS 23:57 → 3EX 12-01 02:43
PROVIDERS: ADMIT Psychiatry & Neurology Psychiatry; ATTEND Psychiatry & Neurology Psychiatry
DX: F25.1 Schizoaffective disorder, depressive type (principal); R45.851 Suicidal ideations; E55.9 Vitamin D deficiency, unspecified; F41.9 Anxiety disorder, unspecified; G47.00 Insomnia, unspecified; I10 Essential (primary) hypertension; K21.9 Gastro-esophageal reflux disease without esophagitis; K59.00 Constipation, unspecified; M19.90 Unspecified osteoarthritis, unspecified site; M54.9 Dorsalgia, unspecified; R07.81 Pleurodynia; R51 Headache; Z59.0 Homelessness; Z88.5 Allergy status to narcotic agent; Z79.899 Other long term (current) drug therapy
CPT/HCPCS: 71100; 83036; 84439; 84443; 86592; 93005; 99285

== ENCOUNTER 2018-01-03 20:06 | Inpatient (IN) | payer MEDICARE, MEDICAID ==
[~2018-01-03] VITALS: Ht 160 cm; Wt 58.6 kg
[2018-01-03] MEDS ORDERED: LORazepam 0.5 MG TABLET PO PRN (20:30)
[2018-01-03] MEDS ORDERED: ZOLPIDEM TARTRATE 5 MG TABLET PO PRN (20:30)
[2018-01-03] MEDS ORDERED: QUEtiapine FUMARATE 25 MG TABLET PO PRN (20:30)
[2018-01-03 20:47] VITALS: BP 155/95
[2018-01-04 06:32] VITALS: BP 139/72
[2018-01-04] MEDS: OMEPRAZOLE 20 MG CAPSULE PO SCH ×2 (06:50→16:31)
[2018-01-04 08:00] VITALS: BP 144/87
[2018-01-04 08:22] LABS: HEMOGLOBIN A1C 5.7 % (4.5-6.2)
[2018-01-04 08:54] LABS: EOSINOPHILS % (AUTO) 4.6 % (1.0-6.0); HEMOGLOBIN 12.3 g/dL (12.0-16.0); LYMPHOCYTES # (AUTO) 1.9 K/uL (1.0-4.8); LYMPHOCYTES % (AUTO) 32.4 % (22.0-44.0); MEAN CORPUSCULAR HEMOGLOBIN 30.4 pg (26.0-34.0); MEAN CORPUSCULAR HGB CONC 34.1 G/dL (31.0-37.0); MEAN CORPUSCULAR VOLUME 89 fL (80-100); MONOCYTES # (AUTO) 0.4 K/uL (0.1-1.0); MONOCYTES % (AUTO) 6.8 % (2.0-9.0); NEUTROPHILS # (AUTO) 3.2 K/uL (1.8-7.7); NEUTROPHILS % (AUTO) 55.2 % (40.0-70.0); PLATELET COUNT (AUTO) 163 K/uL (150-450); RED BLOOD CELL COUNT(AUTO) 4.04 MIL/uL (4.00-5.20); RED CELL DISTRIBUTION WIDTH 13.3 % (11.5-14.5)
[2018-01-04 09:03] LABS: ALANINE AMINOTRANSFERASE 18 U/L (12-78); ALBUMIN 3.4 g/dL (3.4-5.0); ALKALINE PHOSPHATASE 111 U/L (46-116); ANION GAP 6 mmol/L (8-16); ASPARTATE AMINOTRANSFERASE 19 U/L (15-37); BILIRUBIN,TOTAL 0.5 mg/dL (0.1-1.0); CALCIUM, TOTAL 8.7 mg/dL (8.8-10.5); CARBON DIOXIDE 27 mmol/L (22-29); CHLORIDE 104 mmol/L (98-107); CHOL/HDL RATIO 3.6 (3.9-5.7); CHOLESTEROL 184 mg/dL (131-200); CREATININE 0.62 mg/dL (0.60-1.30); FREE T4 (FREE THYROXINE) 1.03 ng/dL (0.76-1.46); GLUCOSE,RANDOM 87 mg/dL (70-110); HDL CHOLESTEROL 51 mg/dL (40-60); LDL CHOL (CALC.) 121 mg/dL (0-130); POTASSIUM 3.7 mmol/L (3.5-5.1); SODIUM SERUM 137 mmol/L (136-145); THYROID STIMULATING HORMONE 1.68 uIU/mL (0.36-3.74); TOTAL PROTEIN, SERUM 6.5 g/dL (6.4-8.2); TRIGLYCERIDES 58 mg/dL (15-150); UREA NITROGEN, BLOOD 19 mg/dL (7-18)
[2018-01-04 09:04] LABS: GLOMERULAR FILTR. RATE CALC > 60 mL/min (>60)
[2018-01-04] MEDS: LISINOPRIL 20 MG TABLET PO SCH (09:32)
[2018-01-04 16:00] VITALS: BP 160/90
[2018-01-04] MEDS ORDERED: PETROLATUM,WHITE 71 GM JELLY TP PRN (20:00)
[2018-01-04] MEDS ORDERED: IBUPROFEN 600 MG TABLET PO PRN (20:00)
[2018-01-04] MEDS ORDERED: LOPERAMIDE HCL 2 MG CAPSULE PO PRN (20:00)
[2018-01-04] MEDS ORDERED: ALBUTEROL SULFATE HFA 90 MCG/PUFF 8 GM INHALER IH PRN (20:00)
[2018-01-04] MEDS ORDERED: MAGNESIUM HYDROXIDE SUSPENSION 30 ML UDCUP PO PRN (20:00)
[2018-01-04] MEDS ORDERED: CloNIDine HCL 0.1 MG TABLET PO PRN (20:00)
[2018-01-04] MEDS ORDERED: ONDANSETRON HCL 4 MG TABLET PO PRN (20:00)
[2018-01-04] MEDS ORDERED: MAG HYDROX/AL HYDROX/SIMETH ES 30 ML SUSPENSION UDCUP PO PRN (20:00)
[2018-01-04] MEDS ORDERED: BENZOCAINE/MENTHOL LOZENGE MM PRN (20:00)
[2018-01-04] MEDS ORDERED: BACITRACIN 28.4 GM OINTMENT TP PRN (20:00)
[2018-01-04] MEDS: OLANZapine 2.5 MG TABLET PO SCH (20:20)
[2018-01-05 06:56] VITALS: BP 155/84
[2018-01-05 08:29] VITALS: BP 164/81
[2018-01-05] MEDS: ACETAMINOPHEN 325 MG TABLET PO PRN ×2 (08:40→18:23)
[2018-01-05] MEDS: OMEPRAZOLE 20 MG CAPSULE PO SCH (08:40)
[2018-01-05] MEDS: LISINOPRIL 20 MG TABLET PO SCH (08:40)
[2018-01-05] MEDS: DOCUSATE SODIUM 100 MG CAPSULE PO SCH (09:00)
[2018-01-05] MEDS: HYDROCORTISONE 0.5% 30 GM CREAM TP SCH ×2 (09:05→17:40)
[2018-01-05 13:06] VITALS: BP 117/60
[2018-01-05 16:36] VITALS: BP 128/65
[2018-01-05 19:23] VITALS: BP 118/70
[2018-01-05] MEDS: OLANZapine 2.5 MG TABLET PO SCH (21:26)
[2018-01-06 08:41] VITALS: BP 147/75
[2018-01-06] MEDS ORDERED: BENZOCAINE 10% 7 GM GEL TP PRN (08:45)
[2018-01-06] MEDS: DOCUSATE SODIUM 100 MG CAPSULE PO SCH (09:00)
[2018-01-06] MEDS: ACETAMINOPHEN 325 MG TABLET PO PRN (09:14)
[2018-01-06] MEDS: LISINOPRIL 20 MG TABLET PO SCH (09:15)
[2018-01-06] MEDS: HYDROCORTISONE 0.5% 30 GM CREAM TP SCH ×2 (09:15→17:08)
[2018-01-06] MEDS: OMEPRAZOLE 20 MG CAPSULE PO SCH (09:15)
[2018-01-06 14:56] VITALS: BP 134/80
[2018-01-06 16:00] VITALS: BP 155/74
[2018-01-06] MEDS: MAGNESIUM SULFATE 454 GM BOX PO SCH ×2 (17:50→20:49)
[2018-01-06] MEDS: CLINDAMYCIN HCL 150 MG CAPSULE PO SCH (18:04)
[2018-01-06] MEDS: OLANZapine 5 MG TABLET PO SCH (20:49)
[2018-01-06 21:30] VITALS: BP 148/76
[2018-01-06 21:45] VITALS: BP 142/72
[2018-01-07] MEDS: CLINDAMYCIN HCL 150 MG CAPSULE PO SCH ×4 (00:54→17:52)
[2018-01-07 07:26] VITALS: BP 140/78
[2018-01-07 08:22] VITALS: BP 155/85
[2018-01-07] MEDS: MAGNESIUM SULFATE 454 GM BOX PO SCH ×4 (08:29→21:05)
[2018-01-07] MEDS: DOCUSATE SODIUM 100 MG CAPSULE PO SCH (09:00)
[2018-01-07] MEDS: OMEPRAZOLE 20 MG CAPSULE PO SCH (09:09)
[2018-01-07] MEDS: LISINOPRIL 20 MG TABLET PO SCH (09:09)
[2018-01-07] MEDS: LACTOBAC ACID/BULG/BIFID/THERM TABLET PO SCH (09:09)
[2018-01-07] MEDS: OLANZapine 2.5 MG TABLET PO SCH (09:09)
[2018-01-07] MEDS: HYDROCORTISONE 0.5% 30 GM CREAM TP SCH ×2 (09:11→17:52)
[2018-01-07 16:24] VITALS: BP 125/78
[2018-01-07] MEDS: OLANZapine 5 MG TABLET PO SCH (21:06)
[2018-01-08] MEDS: CLINDAMYCIN HCL 150 MG CAPSULE PO SCH ×5 (00:13→23:52)
[2018-01-08 07:07] VITALS: BP 132/75
[2018-01-08 08:32] VITALS: BP 150/73
[2018-01-08] MEDS: LACTOBAC ACID/BULG/BIFID/THERM TABLET PO SCH (09:00)
[2018-01-08] MEDS: OMEPRAZOLE 20 MG CAPSULE PO SCH (09:00)
[2018-01-08] MEDS: DOCUSATE SODIUM 100 MG CAPSULE PO SCH (09:00)
[2018-01-08] MEDS: HYDROCORTISONE 0.5% 30 GM CREAM TP SCH ×2 (09:10→16:42)
[2018-01-08] MEDS: OLANZapine 2.5 MG TABLET PO SCH (09:11)
[2018-01-08] MEDS: LISINOPRIL 20 MG TABLET PO SCH (09:11)
[2018-01-08] MEDS: MAGNESIUM SULFATE 454 GM BOX PO SCH ×2 (16:42→20:41)
[2018-01-08 17:00] VITALS: BP 135/79
[2018-01-08] MEDS: OLANZapine 5 MG TABLET PO SCH (20:41)
[2018-01-09] MEDS: CLINDAMYCIN HCL 150 MG CAPSULE PO SCH ×3 (06:18→17:01)
[2018-01-09 07:08] VITALS: BP 142/72
[2018-01-09] MEDS: MAGNESIUM SULFATE 454 GM BOX PO SCH ×4 (07:30→20:17)
[2018-01-09] MEDS: HYDROCORTISONE 0.5% 30 GM CREAM TP SCH ×2 (08:08→17:01)
[2018-01-09] MEDS: DOCUSATE SODIUM 100 MG CAPSULE PO SCH (08:08)
[2018-01-09] MEDS: OMEPRAZOLE 20 MG CAPSULE PO SCH (08:08)
[2018-01-09] MEDS: LISINOPRIL 20 MG TABLET PO SCH (08:08)
[2018-01-09] MEDS: LACTOBAC ACID/BULG/BIFID/THERM TABLET PO SCH (08:08)
[2018-01-09] MEDS: OLANZapine 2.5 MG TABLET PO SCH (08:09)
[2018-01-09 11:02] VITALS: BP 140/79
[2018-01-09] MEDS: OLANZapine 5 MG TABLET PO SCH (20:17)
[2018-01-09 21:37] VITALS: BP 140/89
[2018-01-10] MEDS: CLINDAMYCIN HCL 150 MG CAPSULE PO SCH ×2 (06:00)
[2018-01-10 07:17] VITALS: BP 132/76
[2018-01-10] MEDS: MAGNESIUM SULFATE 454 GM BOX PO SCH (07:30)
[2018-01-10] MEDS ORDERED: OLAN2.5T3 PO (07:59)
[2018-01-10] MEDS ORDERED: OLAN5TAB2 PO (08:00)
[2018-01-10] MEDS ORDERED: OMEP20 PO (08:02)
[2018-01-10] MEDS ORDERED: DSS100 PO (08:02)
[2018-01-10] MEDS ORDERED: CLIN150C9 PO (08:03)
[2018-01-10] MEDS ORDERED: LACT1CAP70 PO (08:08)
[2018-01-10] MEDS ORDERED: [UNRECOGNIZED DRUG - CODE] PO (08:12)
[2018-01-10 08:37] VITALS: BP 152/94
[2018-01-10] MEDS: LACTOBAC ACID/BULG/BIFID/THERM TABLET PO SCH (09:00)
[2018-01-10] MEDS: OLANZapine 2.5 MG TABLET PO SCH (09:00)
[2018-01-10] MEDS: DOCUSATE SODIUM 100 MG CAPSULE PO SCH (09:00)
[2018-01-10] MEDS: OMEPRAZOLE 20 MG CAPSULE PO SCH (09:34)
[2018-01-10] MEDS: LISINOPRIL 20 MG TABLET PO SCH (09:34)
[2018-01-10] MEDS: HYDROCORTISONE 0.5% 30 GM CREAM TP SCH (09:34)
== END 2018-01-10 10:10 | disposition home or self-care (01) | DRG 885 ==
LOC: B3A 20:26 → EDSTATUS 20:46 → B3A 01-08 18:24
PROVIDERS: ADMIT Psychiatry & Neurology Psychiatry; ATTEND Psychiatry & Neurology Psychiatry
DX: F25.0 Schizoaffective disorder, bipolar type (principal); R45.851 Suicidal ideations; E55.9 Vitamin D deficiency, unspecified; F41.9 Anxiety disorder, unspecified; G47.00 Insomnia, unspecified; I10 Essential (primary) hypertension; K08.89 Other specified disorders of teeth and supporting structures; K21.9 Gastro-esophageal reflux disease without esophagitis; K59.00 Constipation, unspecified; M19.90 Unspecified osteoarthritis, unspecified site; Z91.14 Patient's other noncompliance with medication regimen; Z91.19 Patient's noncompliance with other medical treatment and regimen; Z59.0 Homelessness; Z88.6 Allergy status to analgesic agent; Z56.0 Unemployment, unspecified
CPT/HCPCS: 83036; 84439; 84443; 99285

== ENCOUNTER 2019-01-18 17:16 | Inpatient (IN) | payer MEDICARE ==
[~2019-01-18] VITALS: Ht 152.4 cm; Wt 57.6 kg
[~2019-01-18 17:16] MED LIST changes: +CLIN150C9 PO; +DSS100 PO; +LACT1CAP70 PO; +OLAN2.5T3 PO; +OLAN5TAB2 PO; -OLAN5TAB40 PO; +[UNRECOGNIZED DRUG - CODE] PO
[2019-01-18] MEDS ORDERED: ChlorproMAZINE HCL 10 MG TABLET PO PRN (19:15)
[2019-01-18] MEDS ORDERED: LORazepam 2 MG TABLET PO PRN (19:15)
[2019-01-18] MEDS ORDERED: ZOLPIDEM TARTRATE 5 MG TABLET PO PRN (19:15)
[2019-01-18] MEDS: OLANZapine 5 MG RAPDIS TABLET SL SCH (21:23)
[2019-01-18] MEDS: DiphenhydrAMINE HCL 25 MG CAPSULE PO SCH (21:23)
[2019-01-18 21:24] VITALS: BP 170/80
[2019-01-18] MEDS ORDERED: LORazepam 0.5 MG TABLET PO PRN ×2 (21:30→21:45)
[2019-01-18] MEDS: LISINOPRIL 20 MG TABLET PO SCH (21:50)
[2019-01-18] MEDS ORDERED: CloNIDine HCL 0.1 MG TABLET PO PRN (22:15)
[2019-01-18 22:32] VITALS: BP 149/83
[2019-01-18] MEDS ORDERED: LOPERAMIDE HCL 2 MG CAPSULE PO PRN (22:45)
[2019-01-19 06:32] VITALS: BP 142/70
[2019-01-19 08:12] LABS: BASOPHILS % (AUTO) 0.7 % (0.0-2.0); EOSINOPHILS % (AUTO) 4.4 % (1.0-6.0); HEMOGLOBIN 12.7 g/dL (12.0-16.0); LYMPHOCYTES # (AUTO) 1.8 K/uL (1.0-4.8); LYMPHOCYTES % (AUTO) 31.8 % (22.0-44.0); MEAN CORPUSCULAR HEMOGLOBIN 30.4 pg (26.0-34.0); MEAN CORPUSCULAR HGB CONC 32.6 G/dL (31.0-37.0); MEAN CORPUSCULAR VOLUME 93 fL (80-100); MONOCYTES # (AUTO) 0.5 K/uL (0.1-1.0); MONOCYTES % (AUTO) 8.6 % (2.0-9.0); NEUTROPHILS # (AUTO) 3.1 K/uL (1.8-7.7); NEUTROPHILS % (AUTO) 54.5 % (40.0-70.0); PLATELET COUNT (AUTO) 171 K/uL (150-450); RED BLOOD CELL COUNT(AUTO) 4.19 MIL/uL (4.00-5.20)
[2019-01-19 08:17] VITALS: BP 140/63
[2019-01-19 08:22] LABS: HEMOGLOBIN A1C 5.9 % (4.5-6.2)
[2019-01-19 08:42] LABS: ALANINE AMINOTRANSFERASE 16 U/L (12-78); ALBUMIN 3.7 g/dL (3.4-5.0); ALKALINE PHOSPHATASE 126 U/L (46-116); ANION GAP 6 mmol/L (8-16); ASPARTATE AMINOTRANSFERASE 15 U/L (15-37); BILIRUBIN,TOTAL 0.4 mg/dL (0.1-1.0); CALCIUM, TOTAL 9.3 mg/dL (8.8-10.5); CARBON DIOXIDE 29 mmol/L (22-29); CHLORIDE 109 mmol/L (98-107); CHOL/HDL RATIO 3.8 (3.9-5.7); CHOLESTEROL 200 mg/dL (131-200); CREATININE 0.79 mg/dL (0.60-1.30); FREE T4 (FREE THYROXINE) 1.05 ng/dL (0.76-1.46); GLUCOSE,RANDOM 80 mg/dL (70-110); HDL CHOLESTEROL 53 mg/dL (40-60); LDL CHOL (CALC.) 121 mg/dL (0-130); POTASSIUM 4.4 mmol/L (3.5-5.1); SODIUM SERUM 144 mmol/L (136-145); THYROID STIMULATING HORMONE 2.61 uIU/mL (0.36-3.74); TOTAL PROTEIN, SERUM 6.6 g/dL (6.4-8.2); TRIGLYCERIDES 130 mg/dL (15-150); UREA NITROGEN, BLOOD 21 mg/dL (7-18)
[2019-01-19 08:43] LABS: GLOMERULAR FILTR. RATE CALC > 60 mL/min (>60)
[2019-01-19] MEDS: LISINOPRIL 20 MG TABLET PO SCH (09:31)
[2019-01-19] MEDS: OMEPRAZOLE 20 MG CAPSULE PO SCH (09:31)
[2019-01-19] MEDS ORDERED: GuaiFENesin/D-METHORPHAN [SUGAR-FREE] 200-20MG/10 ML SYRUP UDCUP PO PRN (14:30)
[2019-01-19] MEDS ORDERED: PROMETHAZINE HCL 25 MG TABLET PO PRN (14:30)
[2019-01-19] MEDS ORDERED: TUBERCULIN, PURIFIED PROTEIN DERIVATIVE 5 TU/0.1 ML SYRINGE ID ONE (14:30)
[2019-01-19] MEDS ORDERED: LOPERAMIDE HCL 2 MG CAPSULE PO PRN (14:30)
[2019-01-19] MEDS ORDERED: MAG HYDROX/AL HYDROX/SIMETH ES 30 ML SUSPENSION UDCUP PO PRN (14:30)
[2019-01-19] MEDS ORDERED: OLANZapine 5 MG RAPDIS TABLET PO PRN (14:30)
[2019-01-19] MEDS ORDERED: HydrOXYzine PAMOATE 50 MG CAPSULE PO PRN (14:30)
[2019-01-19] MEDS: THIAMINE HCL 100 MG TABLET PO SCH (16:34)
[2019-01-19 16:41] VITALS: BP 136/65
[2019-01-19] MEDS: DiphenhydrAMINE HCL 25 MG CAPSULE PO SCH (20:54)
[2019-01-19] MEDS: OLANZapine 5 MG RAPDIS TABLET SL SCH (20:54)
[2019-01-20 05:06] VITALS: BP 138/72
[2019-01-20 08:15] VITALS: BP 142/54
[2019-01-20 08:20] VITALS: BP 116/70
[2019-01-20] MEDS: MULTIVITAMINS WITH MINERALS, THERAPEUTIC TABLET PO SCH (08:22)
[2019-01-20] MEDS: LISINOPRIL 20 MG TABLET PO SCH (08:22)
[2019-01-20] MEDS: FOLIC ACID 1 MG TABLET PO SCH (08:22)
[2019-01-20] MEDS: OMEPRAZOLE 20 MG CAPSULE PO SCH (08:22)
[2019-01-20] MEDS: THIAMINE HCL 100 MG TABLET PO SCH ×2 (08:22→16:32)
[2019-01-20] MEDS: DULoxetine HCL 20 MG CAPSULE PO SCH (08:50)
[2019-01-20] MEDS: GABAPENTIN 100 MG CAPSULE PO SCH (16:32)
[2019-01-20 17:00] VITALS: BP 142/65
[2019-01-20] MEDS: DiphenhydrAMINE HCL 25 MG CAPSULE PO SCH (20:33)
[2019-01-20] MEDS ORDERED: OLANZapine 10 MG RAPDIS TABLET SL SCH (21:00)
[2019-01-20] MEDS: ACETAMINOPHEN 325 MG TABLET PO PRN (22:12)
[2019-01-21 08:07] VITALS: BP 121/79
[2019-01-21] MEDS: OMEPRAZOLE 20 MG CAPSULE PO SCH (08:43)
[2019-01-21] MEDS: GABAPENTIN 100 MG CAPSULE PO SCH ×3 (08:43→17:21)
[2019-01-21] MEDS: THIAMINE HCL 100 MG TABLET PO SCH ×2 (08:43→17:21)
[2019-01-21] MEDS: LISINOPRIL 20 MG TABLET PO SCH (08:43)
[2019-01-21] MEDS: MULTIVITAMINS WITH MINERALS, THERAPEUTIC TABLET PO SCH (08:43)
[2019-01-21] MEDS: FOLIC ACID 1 MG TABLET PO SCH (08:43)
[2019-01-21] MEDS: DULoxetine HCL 20 MG CAPSULE PO SCH (08:43)
[2019-01-21 20:03] VITALS: BP 165/86
[2019-01-21] MEDS: DiphenhydrAMINE HCL 25 MG CAPSULE PO SCH (20:03)
[2019-01-21] MEDS: OLANZapine 10 MG RAPDIS TABLET SL SCH (20:10)
[2019-01-21] MEDS ORDERED: OLANZapine 5 MG RAPDIS TABLET SL SCH (21:00)
[2019-01-21 22:00] VITALS: BP 185/78
[2019-01-21] MEDS: LORazepam 1 MG TABLET PO PRN (22:39)
[2019-01-22 00:30] VITALS: BP 120/60
[2019-01-22 08:01] VITALS: BP 152/73
[2019-01-22] MEDS: THIAMINE HCL 100 MG TABLET PO SCH ×2 (08:14→16:37)
[2019-01-22] MEDS: FOLIC ACID 1 MG TABLET PO SCH (08:14)
[2019-01-22] MEDS: GABAPENTIN 100 MG CAPSULE PO SCH ×3 (08:14→16:37)
[2019-01-22] MEDS: MULTIVITAMINS WITH MINERALS, THERAPEUTIC TABLET PO SCH (08:14)
[2019-01-22] MEDS: OMEPRAZOLE 20 MG CAPSULE PO SCH (08:14)
[2019-01-22] MEDS: LISINOPRIL 20 MG TABLET PO SCH (08:14)
[2019-01-22] MEDS: DULoxetine HCL 20 MG CAPSULE PO SCH (08:45)
[2019-01-22 09:08] VITALS: BP 126/81
[2019-01-22 16:09] VITALS: BP 115/69
[2019-01-22] MEDS: DiphenhydrAMINE HCL 25 MG CAPSULE PO SCH (20:12)
[2019-01-22] MEDS: OLANZapine 10 MG RAPDIS TABLET SL SCH (20:12)
[2019-01-23 02:43] VITALS: BP 113/64
[2019-01-23 08:14] VITALS: BP 121/71
[2019-01-23] MEDS: MULTIVITAMINS WITH MINERALS, THERAPEUTIC TABLET PO SCH (08:47)
[2019-01-23] MEDS: THIAMINE HCL 100 MG TABLET PO SCH ×2 (08:47→16:32)
[2019-01-23] MEDS: GABAPENTIN 100 MG CAPSULE PO SCH ×3 (08:47→16:32)
[2019-01-23] MEDS: FOLIC ACID 1 MG TABLET PO SCH (08:47)
[2019-01-23] MEDS: LISINOPRIL 20 MG TABLET PO SCH (08:47)
[2019-01-23] MEDS: DULoxetine HCL 20 MG CAPSULE PO SCH (08:47)
[2019-01-23] MEDS: OMEPRAZOLE 20 MG CAPSULE PO SCH (08:47)
[2019-01-23 18:05] VITALS: BP 131/75
[2019-01-23] MEDS: DiphenhydrAMINE HCL 25 MG CAPSULE PO SCH ×2 (21:00→22:11)
[2019-01-23] MEDS ORDERED: OLANZapine 10 MG RAPDIS TABLET SL SCH (21:00)
[2019-01-24 05:30] VITALS: BP 151/70
[2019-01-24 08:25] VITALS: BP 155/65
[2019-01-24] MEDS: GABAPENTIN 100 MG CAPSULE PO SCH ×2 (08:25→12:09)
[2019-01-24] MEDS: LISINOPRIL 20 MG TABLET PO SCH (08:25)
[2019-01-24] MEDS: THIAMINE HCL 100 MG TABLET PO SCH ×2 (08:25→17:00)
[2019-01-24] MEDS: MULTIVITAMINS WITH MINERALS, THERAPEUTIC TABLET PO SCH (08:25)
[2019-01-24] MEDS: FOLIC ACID 1 MG TABLET PO SCH (08:25)
[2019-01-24] MEDS: OMEPRAZOLE 20 MG CAPSULE PO SCH (08:25)
[2019-01-24] MEDS: DULoxetine HCL 20 MG CAPSULE PO SCH (08:25)
[2019-01-24 11:45] VITALS: BP 165/95
[2019-01-24] MEDS: CloNIDine HCL 0.1 MG TABLET PO PRN (12:19)
[2019-01-24 13:25] VITALS: BP 143/71
[2019-01-24] MEDS ORDERED: ZOLPIDEM TARTRATE 10 MG TABLET PO PRN (15:15)
[2019-01-24] MEDS: OLANZapine 10 MG RAPDIS TABLET SL SCH (21:12)
[2019-01-25 06:07] VITALS: BP 136/72
[2019-01-25 08:08] VITALS: BP 121/76
[2019-01-25] MEDS: DULoxetine HCL 20 MG CAPSULE PO SCH (08:35)
[2019-01-25] MEDS: THIAMINE HCL 100 MG TABLET PO SCH ×2 (08:35→17:18)
[2019-01-25] MEDS: FOLIC ACID 1 MG TABLET PO SCH (08:35)
[2019-01-25] MEDS: LISINOPRIL 20 MG TABLET PO SCH (08:35)
[2019-01-25] MEDS: MULTIVITAMINS WITH MINERALS, THERAPEUTIC TABLET PO SCH (08:35)
[2019-01-25] MEDS: OMEPRAZOLE 20 MG CAPSULE PO SCH (08:35)
[2019-01-25 17:50] VITALS: BP 124/60
[2019-01-25] MEDS: OLANZapine 10 MG RAPDIS TABLET SL SCH (21:14)
[2019-01-26] MEDS: OMEPRAZOLE 20 MG CAPSULE PO SCH (08:20)
[2019-01-26] MEDS: MULTIVITAMINS WITH MINERALS, THERAPEUTIC TABLET PO SCH (08:20)
[2019-01-26] MEDS: LISINOPRIL 20 MG TABLET PO SCH (08:20)
[2019-01-26] MEDS: THIAMINE HCL 100 MG TABLET PO SCH ×2 (08:20→17:15)
[2019-01-26] MEDS: DULoxetine HCL 20 MG CAPSULE PO SCH (08:21)
[2019-01-26] MEDS: FOLIC ACID 1 MG TABLET PO SCH (08:21)
[2019-01-26 08:37] VITALS: BP 153/75
[2019-01-26 16:08] VITALS: BP 122/67
[2019-01-26] MEDS: OLANZapine 10 MG RAPDIS TABLET SL SCH (20:57)
[2019-01-27 09:25] VITALS: BP 145/87
[2019-01-27] MEDS: FOLIC ACID 1 MG TABLET PO SCH (09:25)
[2019-01-27] MEDS: OMEPRAZOLE 20 MG CAPSULE PO SCH (09:25)
[2019-01-27] MEDS: DULoxetine HCL 20 MG CAPSULE PO SCH (09:25)
[2019-01-27] MEDS: THIAMINE HCL 100 MG TABLET PO SCH ×2 (09:25→16:36)
[2019-01-27] MEDS: MULTIVITAMINS WITH MINERALS, THERAPEUTIC TABLET PO SCH (09:25)
[2019-01-27] MEDS: LISINOPRIL 20 MG TABLET PO SCH (09:25)
[2019-01-27 18:07] VITALS: BP 148/72
[2019-01-27] MEDS: OLANZapine 10 MG RAPDIS TABLET SL SCH (21:34)
[2019-01-28 06:00] VITALS: BP 121/73
[2019-01-28] MEDS: FOLIC ACID 1 MG TABLET PO SCH (08:19)
[2019-01-28] MEDS: THIAMINE HCL 100 MG TABLET PO SCH ×2 (08:19→17:20)
[2019-01-28] MEDS: MULTIVITAMINS WITH MINERALS, THERAPEUTIC TABLET PO SCH (08:19)
[2019-01-28] MEDS: OMEPRAZOLE 20 MG CAPSULE PO SCH (08:20)
[2019-01-28] MEDS: DULoxetine HCL 20 MG CAPSULE PO SCH (08:20)
[2019-01-28] MEDS: LISINOPRIL 20 MG TABLET PO SCH (08:20)
[2019-01-28 08:48] VITALS: BP 127/75
[2019-01-28 16:06] VITALS: BP 111/69
[2019-01-28] MEDS: OLANZapine 10 MG RAPDIS TABLET SL SCH (20:58)
[2019-01-29 05:33] VITALS: BP 140/70
[2019-01-29 08:26] VITALS: BP 139/74
[2019-01-29] MEDS: DULoxetine HCL 20 MG CAPSULE PO SCH (09:10)
[2019-01-29] MEDS: LISINOPRIL 20 MG TABLET PO SCH (09:10)
[2019-01-29] MEDS: OMEPRAZOLE 20 MG CAPSULE PO SCH (09:10)
[2019-01-29] MEDS: MULTIVITAMINS WITH MINERALS, THERAPEUTIC TABLET PO SCH (09:10)
[2019-01-29] MEDS: FOLIC ACID 1 MG TABLET PO SCH (09:10)
[2019-01-29] MEDS: THIAMINE HCL 100 MG TABLET PO SCH (09:10)
[2019-01-29 16:11] VITALS: BP 138/78
[2019-01-29] MEDS: OLANZapine 10 MG RAPDIS TABLET SL SCH (21:16)
[2019-01-30 00:35] VITALS: BP 126/74
[2019-01-30 08:03] VITALS: BP 140/77
[2019-01-30] MEDS: DULoxetine HCL 20 MG CAPSULE PO SCH (08:27)
[2019-01-30] MEDS: MULTIVITAMINS WITH MINERALS, THERAPEUTIC TABLET PO SCH (08:27)
[2019-01-30] MEDS: LISINOPRIL 20 MG TABLET PO SCH (08:27)
[2019-01-30] MEDS: OMEPRAZOLE 20 MG CAPSULE PO SCH (08:27)
[2019-01-30] MEDS: OLANZapine 5 MG RAPDIS TABLET PO SCH (17:15)
[2019-01-30 19:30] VITALS: BP 123/72
[2019-01-30] MEDS: OLANZapine 10 MG RAPDIS TABLET PO SCH (20:34)
[2019-01-31 01:02] VITALS: BP 127/66
[2019-01-31 08:17] VITALS: BP 143/85
[2019-01-31] MEDS: BuPROPion HCL XL 150 MG ER TABLET PO SCH (09:00)
[2019-01-31] MEDS: OMEPRAZOLE 20 MG CAPSULE PO SCH (09:20)
[2019-01-31] MEDS: LISINOPRIL 20 MG TABLET PO SCH (09:20)
[2019-01-31] MEDS: OLANZapine 5 MG RAPDIS TABLET PO SCH ×3 (09:21→16:34)
[2019-01-31] MEDS: MULTIVITAMINS WITH MINERALS, THERAPEUTIC TABLET PO SCH (09:21)
[2019-01-31] MEDS: DULoxetine HCL 20 MG CAPSULE PO SCH (09:35)
[2019-01-31 16:03] VITALS: BP 125/68
[2019-01-31] MEDS: OLANZapine 10 MG RAPDIS TABLET PO SCH (20:07)
[2019-02-01 00:57] VITALS: BP 130/69
[2019-02-01 08:25] VITALS: BP 140/75
[2019-02-01] MEDS: BuPROPion HCL XL 150 MG ER TABLET PO SCH (08:43)
[2019-02-01] MEDS: MULTIVITAMINS WITH MINERALS, THERAPEUTIC TABLET PO SCH (08:43)
[2019-02-01] MEDS: DULoxetine HCL 20 MG CAPSULE PO SCH (08:43)
[2019-02-01] MEDS: OLANZapine 5 MG RAPDIS TABLET PO SCH ×3 (08:43→17:17)
[2019-02-01] MEDS: OMEPRAZOLE 20 MG CAPSULE PO SCH (08:43)
[2019-02-01] MEDS: LISINOPRIL 20 MG TABLET PO SCH (08:43)
[2019-02-01 08:56] LABS: BASOPHILS % (AUTO) 0.9 % (0.0-2.0); EOSINOPHILS % (AUTO) 4.6 % (1.0-6.0); HEMATOCRIT 36.6 % (36-46); HEMOGLOBIN 12.1 g/dL (12.0-16.0); LYMPHOCYTES # (AUTO) 1.6 K/uL (1.0-4.8); LYMPHOCYTES % (AUTO) 26.9 % (22.0-44.0); MEAN CORPUSCULAR HEMOGLOBIN 30.7 pg (26.0-34.0); MEAN CORPUSCULAR HGB CONC 33.1 G/dL (31.0-37.0); MEAN CORPUSCULAR VOLUME 93 fL (80-100); MONOCYTES # (AUTO) 0.5 K/uL (0.1-1.0); MONOCYTES % (AUTO) 7.9 % (2.0-9.0); NEUTROPHILS # (AUTO) 3.5 K/uL (1.8-7.7); NEUTROPHILS % (AUTO) 59.7 % (40.0-70.0); PLATELET COUNT (AUTO) 163 K/uL (150-450); RED BLOOD CELL COUNT(AUTO) 3.95 MIL/uL (4.00-5.20); RED CELL DISTRIBUTION WIDTH 13.7 % (11.5-14.5)
[2019-02-01 09:48] LABS: ALANINE AMINOTRANSFERASE 12 U/L (12-78); ALBUMIN 3.2 g/dL (3.4-5.0); ALKALINE PHOSPHATASE 108 U/L (46-116); ANION GAP 8 mmol/L (8-16); ASPARTATE AMINOTRANSFERASE 16 U/L (15-37); BILIRUBIN,TOTAL 0.2 mg/dL (0.1-1.0); CALCIUM, TOTAL 8.8 mg/dL (8.8-10.5); CARBON DIOXIDE 29 mmol/L (22-29); CHLORIDE 103 mmol/L (98-107); CREATINE KINASE, TOTAL ONLY 30 U/L (26-192); CREATININE 0.65 mg/dL (0.60-1.30); GLUCOSE,RANDOM 83 mg/dL (70-110); POTASSIUM 4.2 mmol/L (3.5-5.1); SODIUM SERUM 140 mmol/L (136-145); TOTAL PROTEIN, SERUM 6.1 g/dL (6.4-8.2); UREA NITROGEN, BLOOD 19 mg/dL (7-18)
[2019-02-01 09:49] LABS: GLOMERULAR FILTR. RATE CALC > 60 mL/min (>60)
[2019-02-01] MEDS: OLANZapine 10 MG RAPDIS TABLET PO SCH (20:23)
[2019-02-02 00:03] VITALS: BP 130/72
[2019-02-02 08:06] VITALS: BP 117/72
[2019-02-02 08:07] LABS: BASOPHILS % (AUTO) 0.8 % (0.0-2.0); EOSINOPHILS % (AUTO) 4.8 % (1.0-6.0); HEMATOCRIT 36.4 % (36-46); HEMOGLOBIN 12.1 g/dL (12.0-16.0); LYMPHOCYTES # (AUTO) 1.6 K/uL (1.0-4.8); LYMPHOCYTES % (AUTO) 24.6 % (22.0-44.0); MEAN CORPUSCULAR HEMOGLOBIN 30.7 pg (26.0-34.0); MEAN CORPUSCULAR HGB CONC 33.2 G/dL (31.0-37.0); MEAN CORPUSCULAR VOLUME 93 fL (80-100); MONOCYTES # (AUTO) 0.5 K/uL (0.1-1.0); MONOCYTES % (AUTO) 8.7 % (2.0-9.0); NEUTROPHILS # (AUTO) 3.9 K/uL (1.8-7.7); NEUTROPHILS % (AUTO) 61.1 % (40.0-70.0); PLATELET COUNT (AUTO) 165 K/uL (150-450); RED BLOOD CELL COUNT(AUTO) 3.93 MIL/uL (4.00-5.20); RED CELL DISTRIBUTION WIDTH 13.9 % (11.5-14.5)
[2019-02-02] MEDS: OMEPRAZOLE 20 MG CAPSULE PO SCH (08:16)
[2019-02-02] MEDS: BuPROPion HCL XL 150 MG ER TABLET PO SCH (08:16)
[2019-02-02] MEDS: OLANZapine 5 MG RAPDIS TABLET PO SCH ×3 (08:16→16:43)
[2019-02-02] MEDS: DULoxetine HCL 20 MG CAPSULE PO SCH (08:16)
[2019-02-02] MEDS: MULTIVITAMINS WITH MINERALS, THERAPEUTIC TABLET PO SCH (08:16)
[2019-02-02] MEDS: LISINOPRIL 20 MG TABLET PO SCH (08:17)
[2019-02-02 16:07] VITALS: BP 140/64
[2019-02-02] MEDS: OLANZapine 10 MG RAPDIS TABLET PO SCH (20:28)
[2019-02-03] MEDS: DULoxetine HCL 20 MG CAPSULE PO SCH (08:30)
[2019-02-03] MEDS: MULTIVITAMINS WITH MINERALS, THERAPEUTIC TABLET PO SCH (08:30)
[2019-02-03] MEDS: BuPROPion HCL XL 150 MG ER TABLET PO SCH (08:30)
[2019-02-03] MEDS: LISINOPRIL 20 MG TABLET PO SCH (08:30)
[2019-02-03] MEDS: OLANZapine 5 MG RAPDIS TABLET PO SCH ×3 (08:30→16:35)
[2019-02-03] MEDS: OMEPRAZOLE 20 MG CAPSULE PO SCH (08:30)
[2019-02-03 09:00] VITALS: BP_SYST 10; BP_SYST 130; BP_DIAS 73
[2019-02-03 16:11] VITALS: BP 132/76
[2019-02-03] MEDS: OLANZapine 10 MG RAPDIS TABLET PO SCH (20:34)
[2019-02-04 02:29] VITALS: BP 144/78
[2019-02-04 08:15] VITALS: BP 140/73
[2019-02-04 08:42] LABS: BASOPHILS % (AUTO) 1.1 % (0.0-2.0); EOSINOPHILS % (AUTO) 4.7 % (1.0-6.0); HEMATOCRIT 38.4 % (36-46); HEMOGLOBIN 12.7 g/dL (12.0-16.0); LYMPHOCYTES # (AUTO) 1.3 K/uL (1.0-4.8); LYMPHOCYTES % (AUTO) 21.5 % (22.0-44.0); MEAN CORPUSCULAR HEMOGLOBIN 30.3 pg (26.0-34.0); MEAN CORPUSCULAR VOLUME 92 fL (80-100); MONOCYTES # (AUTO) 0.5 K/uL (0.1-1.0); MONOCYTES % (AUTO) 8.7 % (2.0-9.0); NEUTROPHILS # (AUTO) 3.9 K/uL (1.8-7.7); PLATELET COUNT (AUTO) 174 K/uL (150-450); RED BLOOD CELL COUNT(AUTO) 4.18 MIL/uL (4.00-5.20)
[2019-02-04] MEDS: MULTIVITAMINS WITH MINERALS, THERAPEUTIC TABLET PO SCH (08:49)
[2019-02-04] MEDS: OMEPRAZOLE 20 MG CAPSULE PO SCH (08:49)
[2019-02-04] MEDS: LISINOPRIL 20 MG TABLET PO SCH (08:49)
[2019-02-04] MEDS: BuPROPion HCL XL 150 MG ER TABLET PO SCH (08:50)
[2019-02-04] MEDS: OLANZapine 5 MG RAPDIS TABLET PO SCH ×3 (08:50→17:30)
[2019-02-04] MEDS: DULoxetine HCL 60 MG CAPSULE PO SCH (09:00)
[2019-02-04 16:04] VITALS: BP 121/65
[2019-02-04] MEDS: OLANZapine 10 MG RAPDIS TABLET PO SCH (20:47)
[2019-02-05 00:58] VITALS: BP 158/78
[2019-02-05] MEDS: BuPROPion HCL XL 150 MG ER TABLET PO SCH (08:04)
[2019-02-05] MEDS: MULTIVITAMINS WITH MINERALS, THERAPEUTIC TABLET PO SCH (08:04)
[2019-02-05] MEDS: LISINOPRIL 20 MG TABLET PO SCH (08:04)
[2019-02-05] MEDS: OLANZapine 5 MG RAPDIS TABLET PO SCH ×3 (08:04→16:59)
[2019-02-05] MEDS: OMEPRAZOLE 20 MG CAPSULE PO SCH (08:04)
[2019-02-05] MEDS: DULoxetine HCL 60 MG CAPSULE PO SCH (08:12)
[2019-02-05 10:54] VITALS: BP 168/97
[2019-02-05] MEDS: CloNIDine HCL 0.1 MG TABLET PO PRN (10:54)
[2019-02-05 16:07] VITALS: BP 145/85
[2019-02-05] MEDS: ACETAMINOPHEN 325 MG TABLET PO PRN (18:02)
[2019-02-05] MEDS: OLANZapine 10 MG RAPDIS TABLET PO SCH (20:18)
[2019-02-06 01:25] VITALS: BP 119/64
[2019-02-06] MEDS: MULTIVITAMINS WITH MINERALS, THERAPEUTIC TABLET PO SCH (08:43)
[2019-02-06] MEDS: DULoxetine HCL 60 MG CAPSULE PO SCH ×2 (08:44→09:00)
[2019-02-06] MEDS: OMEPRAZOLE 20 MG CAPSULE PO SCH (08:44)
[2019-02-06] MEDS: OLANZapine 5 MG RAPDIS TABLET PO SCH ×2 (08:44→12:14)
[2019-02-06] MEDS: BuPROPion HCL XL 150 MG ER TABLET PO SCH (08:44)
[2019-02-06] MEDS: LISINOPRIL 20 MG TABLET PO SCH (08:44)
[2019-02-06] MEDS: MAGNESIUM HYDROXIDE SUSPENSION 30 ML UDCUP PO PRN (08:56)
[2019-02-06 09:35] VITALS: BP 149/66
[2019-02-06 11:20] VITALS: BP 130/68
[2019-02-06] MEDS ORDERED: ARIPiprazole ER SUSPENSION 400 MG VIAL IM ONE (15:30)
[2019-02-06 16:07] VITALS: BP 164/70
[2019-02-06 19:00] VITALS: BP 156/92
[2019-02-07 00:33] VITALS: BP 137/88
[2019-02-07] MEDS: OMEPRAZOLE 20 MG CAPSULE PO SCH (08:04)
[2019-02-07 08:35] VITALS: BP 163/85
[2019-02-07] MEDS: LISINOPRIL 20 MG TABLET PO SCH (08:37)
[2019-02-07] MEDS: ARIPiprazole 5 MG TABLET PO SCH (08:46)
[2019-02-07] MEDS: DULoxetine HCL 60 MG CAPSULE PO SCH (08:46)
[2019-02-07] MEDS: MULTIVITAMINS WITH MINERALS, THERAPEUTIC TABLET PO SCH (08:46)
[2019-02-07] MEDS: BuPROPion HCL XL 150 MG ER TABLET PO SCH (08:46)
[2019-02-07] MEDS: LORazepam 1 MG TABLET PO PRN (12:04)
[2019-02-07 12:48] VITALS: BP 166/91
[2019-02-07] MEDS: CloNIDine HCL 0.1 MG TABLET PO PRN (12:48)
[2019-02-07 14:00] VITALS: BP 123/72
[2019-02-07 16:00] VITALS: BP 117/76
[2019-02-07] MEDS ORDERED: OLANZapine 5 MG RAPDIS TABLET PO SCH (21:00)
[2019-02-08 00:56] VITALS: BP 135/85
[2019-02-08 08:20] VITALS: BP 131/80
[2019-02-08] MEDS: OMEPRAZOLE 20 MG CAPSULE PO SCH (08:22)
[2019-02-08] MEDS: LISINOPRIL 20 MG TABLET PO SCH (08:22)
[2019-02-08] MEDS: ARIPiprazole 5 MG TABLET PO SCH (08:22)
[2019-02-08] MEDS: DULoxetine HCL 60 MG CAPSULE PO SCH ×2 (08:29→09:08)
[2019-02-08] MEDS: MULTIVITAMINS WITH MINERALS, THERAPEUTIC TABLET PO SCH ×2 (08:30→09:08)
[2019-02-08] MEDS: BuPROPion HCL XL 150 MG ER TABLET PO SCH ×2 (08:30→09:08)
[2019-02-08 16:07] VITALS: BP 153/80
[2019-02-08] MEDS ORDERED: OLANZapine 5 MG RAPDIS TABLET PO PRN (16:45)
[2019-02-08] MEDS: ACETAMINOPHEN 325 MG TABLET PO PRN (19:06)
[2019-02-08 19:30] VITALS: BP 166/92
[2019-02-08] MEDS: CloNIDine HCL 0.1 MG TABLET PO PRN (19:32)
[2019-02-08] MEDS ORDERED: OLANZapine 10 MG RAPDIS TABLET PO SCH (21:00)
[2019-02-08 21:04] VITALS: BP 156/77
[2019-02-09 06:37] VITALS: BP 120/65
[2019-02-09] MEDS: LISINOPRIL 20 MG TABLET PO SCH (08:18)
[2019-02-09] MEDS: OMEPRAZOLE 20 MG CAPSULE PO SCH (08:18)
[2019-02-09 08:20] VITALS: BP 134/74
[2019-02-09] MEDS: DULoxetine HCL 60 MG CAPSULE PO SCH (08:23)
[2019-02-09] MEDS: MULTIVITAMINS WITH MINERALS, THERAPEUTIC TABLET PO SCH (08:23)
[2019-02-09] MEDS: BuPROPion HCL XL 150 MG ER TABLET PO SCH (08:23)
[2019-02-09] MEDS: ACETAMINOPHEN 325 MG TABLET PO PRN (20:13)
[2019-02-09 20:15] VITALS: BP 145/87
[2019-02-09] MEDS ORDERED: OLANZapine 5 MG RAPDIS TABLET PO SCH (21:00)
[2019-02-10 06:24] VITALS: BP 134/82
[2019-02-10 08:06] VITALS: BP 138/70
[2019-02-10] MEDS: OMEPRAZOLE 20 MG CAPSULE PO SCH (08:35)
[2019-02-10] MEDS: DULoxetine HCL 60 MG CAPSULE PO SCH (09:00)
[2019-02-10] MEDS: BuPROPion HCL XL 150 MG ER TABLET PO SCH (09:00)
[2019-02-10] MEDS: LISINOPRIL 20 MG TABLET PO SCH (09:26)
[2019-02-10] MEDS: MULTIVITAMINS WITH MINERALS, THERAPEUTIC TABLET PO SCH (09:26)
[2019-02-10 16:10] VITALS: BP 135/67
[2019-02-10] MEDS: ACETAMINOPHEN 325 MG TABLET PO PRN (16:45)
[2019-02-10] MEDS: OLANZapine 10 MG RAPDIS TABLET PO SCH (21:33)
[2019-02-11 06:04] VITALS: BP 129/70
[2019-02-11 08:03] VITALS: BP 146/91
[2019-02-11] MEDS: LISINOPRIL 20 MG TABLET PO SCH (08:33)
[2019-02-11] MEDS: OMEPRAZOLE 20 MG CAPSULE PO SCH (08:33)
[2019-02-11] MEDS: ACETAMINOPHEN 325 MG TABLET PO PRN (08:34)
[2019-02-11] MEDS: DULoxetine HCL 60 MG CAPSULE PO SCH (09:00)
[2019-02-11] MEDS: BuPROPion HCL XL 150 MG ER TABLET PO SCH (09:00)
[2019-02-11] MEDS: MULTIVITAMINS WITH MINERALS, THERAPEUTIC TABLET PO SCH (09:20)
[2019-02-11 16:06] VITALS: BP 131/75
[2019-02-11] MEDS: OLANZapine 10 MG RAPDIS TABLET PO SCH (20:28)
[2019-02-12 05:57] VITALS: BP 138/88
[2019-02-12 08:04] VITALS: BP 144/77
[2019-02-12] MEDS: BuPROPion HCL XL 150 MG ER TABLET PO SCH (09:00)
[2019-02-12] MEDS: MULTIVITAMINS WITH MINERALS, THERAPEUTIC TABLET PO SCH (09:00)
[2019-02-12] MEDS: DULoxetine HCL 60 MG CAPSULE PO SCH (09:00)
[2019-02-12] MEDS: OMEPRAZOLE 20 MG CAPSULE PO SCH (09:01)
[2019-02-12] MEDS: LISINOPRIL 20 MG TABLET PO SCH (09:01)
[2019-02-12] MEDS: MAGNESIUM HYDROXIDE SUSPENSION 30 ML UDCUP PO PRN (09:19)
[2019-02-12 16:06] VITALS: BP 142/83
[2019-02-12] MEDS: ACETAMINOPHEN 325 MG TABLET PO PRN (16:42)
[2019-02-12] MEDS: OLANZapine 10 MG RAPDIS TABLET PO SCH (20:50)
[2019-02-13 00:24] VITALS: BP 142/76
[2019-02-13 08:18] VITALS: BP 140/77
[2019-02-13] MEDS: DULoxetine HCL 60 MG CAPSULE PO SCH ×2 (08:34→09:00)
[2019-02-13] MEDS: LISINOPRIL 20 MG TABLET PO SCH (09:00)
[2019-02-13] MEDS: OMEPRAZOLE 20 MG CAPSULE PO SCH (09:00)
[2019-02-13] MEDS: BuPROPion HCL XL 150 MG ER TABLET PO SCH (09:00)
[2019-02-13] MEDS: MULTIVITAMINS WITH MINERALS, THERAPEUTIC TABLET PO SCH (09:00)
[2019-02-13] MEDS ORDERED: OLAN10TA22 PO (09:36)
[2019-02-13] MEDS ORDERED: BUPR-47 PO (09:36)
[2019-02-13] MEDS ORDERED: DULO60CA44 PO ×2 (09:36→10:01)
[2019-02-13] MEDS ORDERED: OMEP20 PO (10:01)
[2019-02-13] MEDS ORDERED: OLAN10TA6 PO (10:01)
[2019-02-13] MEDS ORDERED: MULT-1239 PO (10:01)
[2019-02-13] MEDS ORDERED: BUPR-93 PO (10:01)
[2019-03-06] MEDS ORDERED: ARIPiprazole ER SUSPENSION 400 MG VIAL IM SCH (09:00)
== END 2019-02-13 10:35 | disposition home or self-care (01) | DRG 885 ==
LOC: B2X 19:30
PROVIDERS: ADMIT Psychiatry & Neurology Psychiatry; ATTEND Psychiatry & Neurology Psychiatry
DX: F25.0 Schizoaffective disorder, bipolar type (principal); D64.9 Anemia, unspecified; E78.5 Hyperlipidemia, unspecified; I10 Essential (primary) hypertension; K21.9 Gastro-esophageal reflux disease without esophagitis; R19.7 Diarrhea, unspecified; R00.1 Bradycardia, unspecified; F32.9 Major depressive disorder, single episode, unspecified; Z91.19 Patient's noncompliance with other medical treatment and regimen; Z88.5 Allergy status to narcotic agent; Z63.9 Problem related to primary support group, unspecified; Z59.9 Problem related to housing and economic circumstances, unspecified
CPT/HCPCS: 83036; 83735; 84439; 84443; J0401

== ENCOUNTER 2019-07-03 16:46 | Inpatient (IN) | payer MEDICARE, MEDICAID ==
[~2019-07-03] VITALS: Ht 157.5 cm; Wt 61.2 kg
[~2019-07-03 16:46] MED LIST changes: +BUPR-47 PO; +BUPR-93 PO; -CLIN150C9 PO; -DSS100 PO; +DULO60CA44 PO; -HC530C TP; -LACT1CAP70 PO; +MULT-1239 PO; +OLAN10TA22 PO; +OLAN10TA6 PO; -OLAN2.5T3 PO; -OLAN5TAB2 PO; -[UNRECOGNIZED DRUG - CODE] PO
[2019-07-03] MEDS ORDERED: LORazepam 1 MG TABLET PO PRN (17:30)
[2019-07-03] MEDS ORDERED: ZOLPIDEM TARTRATE 10 MG TABLET PO PRN (17:30)
[2019-07-03] MEDS ORDERED: PNEUMOCOCCAL VACCINE POLYVALENT 0.5 ML VIAL [PPSV23] IM ONE (19:15)
[2019-07-03] MEDS ORDERED: INFLUENZA VIRUS VACCINE QVS 2019-20 (3YR+)/PF 60 MCG/0.5 ML SYRINGE IM ONE (19:15)
[2019-07-03] MEDS ORDERED: ZOLPIDEM TARTRATE 5 MG TABLET PO PRN (19:15)
[2019-07-03] MEDS ORDERED: LORazepam 0.5 MG TABLET PO PRN (19:15)
[2019-07-03] MEDS: OLANZapine 5 MG RAPDIS TABLET PO SCH (20:46)
[2019-07-03] MEDS ORDERED: ONDANSETRON HCL 4 MG TABLET PO PRN (21:45)
[2019-07-03] MEDS ORDERED: BENZOCAINE/MENTHOL LOZENGE MM PRN (21:45)
[2019-07-03] MEDS ORDERED: LOPERAMIDE HCL 2 MG CAPSULE PO PRN (21:45)
[2019-07-03] MEDS ORDERED: PETROLATUM,WHITE 28 GM JELLY TP PRN (21:45)
[2019-07-03] MEDS ORDERED: BACITRACIN 28.4 GM OINTMENT TP PRN (21:45)
[2019-07-03] MEDS ORDERED: DOCUSATE SODIUM 100 MG CAPSULE PO PRN (21:45)
[2019-07-03] MEDS ORDERED: CloNIDine HCL 0.1 MG TABLET PO PRN (21:45)
[2019-07-03] MEDS ORDERED: MAG HYDROX/AL HYDROX/SIMETH ES 30 ML SUSPENSION UDCUP PO PRN (21:45)
[2019-07-03] MEDS ORDERED: IBUPROFEN 600 MG TABLET PO PRN (21:45)
[2019-07-03] MEDS ORDERED: OMEPRAZOLE 20 MG CAPSULE PO PRN (21:45)
[2019-07-03] MEDS ORDERED: ALBUTEROL SULFATE HFA 90 MCG/PUFF 8 GM INHALER IH PRN (21:45)
[2019-07-03 23:14] VITALS: BP 150/70
[2019-07-04 07:57] LABS: BASOPHILS % (AUTO) 0.9 % (0.0-2.0); EOSINOPHILS % (AUTO) 3.4 % (1.0-6.0); HEMATOCRIT 39.3 % (36-46); HEMOGLOBIN 13.1 g/dL (12.0-16.0); LYMPHOCYTES # (AUTO) 1.8 K/uL (1.0-4.8); LYMPHOCYTES % (AUTO) 29.1 % (22.0-44.0); MEAN CORPUSCULAR HGB CONC 33.3 G/dL (31.0-37.0); MEAN CORPUSCULAR VOLUME 90 fL (80-100); MONOCYTES # (AUTO) 0.4 K/uL (0.1-1.0); MONOCYTES % (AUTO) 7.3 % (2.0-9.0); NEUTROPHILS # (AUTO) 3.6 K/uL (1.8-7.7); NEUTROPHILS % (AUTO) 59.3 % (40.0-70.0); PLATELET COUNT (AUTO) 187 K/uL (150-450); RED BLOOD CELL COUNT(AUTO) 4.36 MIL/uL (4.00-5.20); RED CELL DISTRIBUTION WIDTH 13.9 % (11.5-14.5)
[2019-07-04 08:02] LABS: HEMOGLOBIN A1C 5.8 % (4.5-6.2)
[2019-07-04 08:12] LABS: ANION GAP 8 mmol/L (8-16); ASPARTATE AMINOTRANSFERASE 14 U/L (15-37); CALCIUM, TOTAL 8.9 mg/dL (8.8-10.5); CARBON DIOXIDE 27 mmol/L (22-29); CHLORIDE 106 mmol/L (98-107); CREATININE 0.73 mg/dL (0.60-1.30); GLUCOSE,RANDOM 92 mg/dL (70-110); POTASSIUM 3.8 mmol/L (3.5-5.1); SODIUM SERUM 141 mmol/L (136-145); UREA NITROGEN, BLOOD 16 mg/dL (7-18)
[2019-07-04 08:13] LABS: GLOMERULAR FILTR. RATE CALC > 60 mL/min (>60)
[2019-07-04 08:35] LABS: APPEARANCE,URINE CLEAR (CLEAR); BILIRUBIN,URINE NEGATIVE (NEGATIVE); GLUCOSE, URINE (UA) NEGATIVE (NEGATIVE); KETONES,URINE NEGATIVE (NEGATIVE); LEUKOCYTE ESTERASE ,URINE NEGATIVE (NEGATIVE); NITRATE,URINE NEGATIVE (NEGATIVE); OCCULT BLOOD,URINE NEGATIVE (NEGATIVE); PROTEIN,URINE NEGATIVE (NEGATIVE); UROBILINOGEN,URINE 0.2 mg/dL (<=1.0)
[2019-07-04 08:40] LABS: AMPHET/METH SCREEN,URINE NEGATIVE (NEGATIVE); BARBITURATE SCREEN, URINE NEGATIVE (NEGATIVE); BENZODIAZEPINES SCREEN,URINE NEGATIVE (NEGATIVE); CANNABINOID SCREEN,URINE NEGATIVE (NEGATIVE); COCAINE SCREEN,URINE NEGATIVE (NEGATIVE); METHADONE SCREEN, URINE NEGATIVE (NEGATIVE); OPIATE SCREEN,URINE NEGATIVE (NEGATIVE)
[2019-07-04 08:42] LABS: PHENCYCLIDINE SCREEN,URINE NEGATIVE (NEGATIVE)
[2019-07-04 08:42] LABS: ALANINE AMINOTRANSFERASE 22 U/L (12-78); ALBUMIN 3.6 g/dL (3.4-5.0); ALKALINE PHOSPHATASE 135 U/L (46-116); BILIRUBIN,TOTAL 0.4 mg/dL (0.1-1.0); CHOL/HDL RATIO 3.7 (3.9-5.7); CHOLESTEROL 201 mg/dL (131-200); FREE T4 (FREE THYROXINE) 1.07 ng/dL (0.76-1.46); HDL CHOLESTEROL 54 mg/dL (40-60); LDL CHOL (CALC.) 125 mg/dL (0-130); THYROID STIMULATING HORMONE 1.97 uIU/mL (0.36-3.74); TOTAL PROTEIN, SERUM 7.1 g/dL (6.4-8.2); TRIGLYCERIDES 108 mg/dL (15-150)
[2019-07-04] MEDS: MULTIVITAMINS WITH IRON TABLET PO SCH ×2 (08:50→16:53)
[2019-07-04] MEDS: BuPROPion HCL 75 MG TABLET PO SCH (08:50)
[2019-07-04] MEDS: OMEPRAZOLE 20 MG CAPSULE PO SCH (08:50)
[2019-07-04] MEDS: DULoxetine HCL 60 MG CAPSULE PO SCH (08:50)
[2019-07-04] MEDS: LISINOPRIL 20 MG TABLET PO SCH (08:51)
[2019-07-04] MEDS: ACETAMINOPHEN 325 MG TABLET PO PRN (10:45)
[2019-07-04 11:04] VITALS: BP 131/61
[2019-07-04 18:44] VITALS: BP 140/67
[2019-07-04] MEDS: OLANZapine 5 MG RAPDIS TABLET PO SCH (20:26)
[2019-07-05] MEDS: MULTIVITAMINS WITH IRON TABLET PO SCH ×2 (08:53→16:14)
[2019-07-05] MEDS: DULoxetine HCL 60 MG CAPSULE PO SCH (08:53)
[2019-07-05] MEDS: OMEPRAZOLE 20 MG CAPSULE PO SCH (08:53)
[2019-07-05] MEDS: LISINOPRIL 20 MG TABLET PO SCH (08:53)
[2019-07-05] MEDS: BuPROPion HCL 75 MG TABLET PO SCH (08:53)
[2019-07-05 09:26] VITALS: BP 137/74
[2019-07-05] MEDS ORDERED: HydrOXYzine PAMOATE 50 MG CAPSULE PO PRN (12:15)
[2019-07-05] MEDS ORDERED: GuaiFENesin/D-METHORPHAN [SUGAR-FREE] 200-20MG/10 ML SYRUP UDCUP PO PRN (12:15)
[2019-07-05] MEDS: THIAMINE HCL 100 MG TABLET PO SCH (16:14)
[2019-07-05 19:19] VITALS: BP 146/71
[2019-07-05] MEDS: OLANZapine 5 MG RAPDIS TABLET PO SCH (20:20)
[2019-07-06] MEDS: THIAMINE HCL 100 MG TABLET PO SCH ×2 (08:52→16:33)
[2019-07-06] MEDS: MULTIVITAMINS WITH MINERALS, THERAPEUTIC TABLET PO SCH (08:52)
[2019-07-06] MEDS: FOLIC ACID 1 MG TABLET PO SCH (08:52)
[2019-07-06] MEDS: OMEPRAZOLE 20 MG CAPSULE PO SCH (08:52)
[2019-07-06] MEDS: LISINOPRIL 20 MG TABLET PO SCH (08:53)
[2019-07-06] MEDS: BuPROPion HCL 75 MG TABLET PO SCH (09:00)
[2019-07-06] MEDS: DULoxetine HCL 60 MG CAPSULE PO SCH (09:00)
[2019-07-06 09:19] VITALS: BP 136/72
[2019-07-06] MEDS: OLANZapine 10 MG RAPDIS TABLET PO SCH (21:13)
[2019-07-07] MEDS: LISINOPRIL 20 MG TABLET PO SCH (08:35)
[2019-07-07] MEDS: DULoxetine HCL 60 MG CAPSULE PO SCH (08:36)
[2019-07-07] MEDS: FOLIC ACID 1 MG TABLET PO SCH (08:36)
[2019-07-07] MEDS: THIAMINE HCL 100 MG TABLET PO SCH ×2 (08:36→16:25)
[2019-07-07] MEDS: BuPROPion HCL 75 MG TABLET PO SCH (08:36)
[2019-07-07] MEDS: MULTIVITAMINS WITH MINERALS, THERAPEUTIC TABLET PO SCH (08:38)
[2019-07-07] MEDS: OMEPRAZOLE 20 MG CAPSULE PO SCH (08:39)
[2019-07-07 10:28] VITALS: BP 114/58
[2019-07-07] MEDS: OLANZapine 10 MG RAPDIS TABLET PO SCH (20:06)
[2019-07-08] MEDS: LISINOPRIL 20 MG TABLET PO SCH (08:44)
[2019-07-08] MEDS: MULTIVITAMINS WITH MINERALS, THERAPEUTIC TABLET PO SCH (08:44)
[2019-07-08 08:45] VITALS: BP 132/63
[2019-07-08] MEDS: BuPROPion HCL 75 MG TABLET PO SCH (08:45)
[2019-07-08] MEDS: DULoxetine HCL 60 MG CAPSULE PO SCH (08:45)
[2019-07-08] MEDS: OMEPRAZOLE 20 MG CAPSULE PO SCH (08:45)
[2019-07-08] MEDS: THIAMINE HCL 100 MG TABLET PO SCH ×2 (08:45→16:20)
[2019-07-08] MEDS: FOLIC ACID 1 MG TABLET PO SCH (08:45)
[2019-07-08 16:00] VITALS: BP 125/72
[2019-07-08] MEDS: OLANZapine 10 MG RAPDIS TABLET PO SCH (20:35)
[2019-07-09] MEDS: OMEPRAZOLE 20 MG CAPSULE PO SCH (08:02)
[2019-07-09] MEDS: LISINOPRIL 20 MG TABLET PO SCH (08:03)
[2019-07-09] MEDS: FOLIC ACID 1 MG TABLET PO SCH (08:03)
[2019-07-09] MEDS: MULTIVITAMINS WITH MINERALS, THERAPEUTIC TABLET PO SCH (08:03)
[2019-07-09] MEDS: DULoxetine HCL 60 MG CAPSULE PO SCH (08:04)
[2019-07-09] MEDS: THIAMINE HCL 100 MG TABLET PO SCH ×2 (08:04→16:42)
[2019-07-09] MEDS: BuPROPion HCL 75 MG TABLET PO SCH (08:05)
[2019-07-09 09:30] VITALS: BP 152/68
[2019-07-09 16:54] VITALS: BP 145/66
[2019-07-09] MEDS: OLANZapine 10 MG RAPDIS TABLET PO SCH (20:16)
[2019-07-10 08:30] VITALS: BP 139/72
[2019-07-10] MEDS: MULTIVITAMINS WITH MINERALS, THERAPEUTIC TABLET PO SCH (08:49)
[2019-07-10] MEDS: OMEPRAZOLE 20 MG CAPSULE PO SCH (08:49)
[2019-07-10] MEDS: LISINOPRIL 20 MG TABLET PO SCH (08:49)
[2019-07-10] MEDS: THIAMINE HCL 100 MG TABLET PO SCH ×2 (08:50→16:11)
[2019-07-10] MEDS: BuPROPion HCL 75 MG TABLET PO SCH (08:50)
[2019-07-10] MEDS: FOLIC ACID 1 MG TABLET PO SCH (08:50)
[2019-07-10] MEDS: DULoxetine HCL 60 MG CAPSULE PO SCH (08:57)
[2019-07-10 16:54] VITALS: BP 148/79
[2019-07-10] MEDS: OLANZapine 10 MG RAPDIS TABLET PO SCH (20:38)
[2019-07-11] MEDS: THIAMINE HCL 100 MG TABLET PO SCH ×2 (08:00→16:01)
[2019-07-11] MEDS: DULoxetine HCL 60 MG CAPSULE PO SCH (08:00)
[2019-07-11] MEDS: BuPROPion HCL 75 MG TABLET PO SCH (08:00)
[2019-07-11] MEDS: FOLIC ACID 1 MG TABLET PO SCH (08:01)
[2019-07-11] MEDS: OMEPRAZOLE 20 MG CAPSULE PO SCH (08:01)
[2019-07-11] MEDS: MULTIVITAMINS WITH MINERALS, THERAPEUTIC TABLET PO SCH (08:01)
[2019-07-11] MEDS: LISINOPRIL 20 MG TABLET PO SCH (08:01)
[2019-07-11 08:30] VITALS: BP 116/60
[2019-07-11 16:44] VITALS: BP 149/78
[2019-07-11] MEDS: OLANZapine 10 MG RAPDIS TABLET PO SCH (20:26)
[2019-07-11 21:27] VITALS: BP 145/75
[2019-07-12 08:30] VITALS: BP 150/77
[2019-07-12] MEDS: DULoxetine HCL 60 MG CAPSULE PO SCH (08:47)
[2019-07-12] MEDS: OMEPRAZOLE 20 MG CAPSULE PO SCH (08:47)
[2019-07-12] MEDS: MULTIVITAMINS WITH MINERALS, THERAPEUTIC TABLET PO SCH (08:47)
[2019-07-12] MEDS: FOLIC ACID 1 MG TABLET PO SCH (08:47)
[2019-07-12] MEDS: THIAMINE HCL 100 MG TABLET PO SCH ×2 (08:48→16:30)
[2019-07-12] MEDS: BuPROPion HCL 75 MG TABLET PO SCH (08:48)
[2019-07-12] MEDS: LISINOPRIL 20 MG TABLET PO SCH (08:48)
[2019-07-12 17:11] VITALS: BP 147/69
[2019-07-12] MEDS: OLANZapine 10 MG RAPDIS TABLET PO SCH (20:34)
[2019-07-13] MEDS: MULTIVITAMINS WITH MINERALS, THERAPEUTIC TABLET PO SCH (08:20)
[2019-07-13] MEDS: LISINOPRIL 20 MG TABLET PO SCH (08:20)
[2019-07-13] MEDS: THIAMINE HCL 100 MG TABLET PO SCH ×2 (08:21→15:55)
[2019-07-13] MEDS: OMEPRAZOLE 20 MG CAPSULE PO SCH (08:21)
[2019-07-13] MEDS: BuPROPion HCL 75 MG TABLET PO SCH (08:22)
[2019-07-13] MEDS: DULoxetine HCL 60 MG CAPSULE PO SCH (08:22)
[2019-07-13] MEDS: FOLIC ACID 1 MG TABLET PO SCH (08:22)
[2019-07-13 10:39] VITALS: BP 171/84
[2019-07-13 16:45] VITALS: BP 153/81
[2019-07-13 19:26] VITALS: BP 109/62
[2019-07-13] MEDS: ACETAMINOPHEN 325 MG TABLET PO PRN (19:27)
[2019-07-13] MEDS: OLANZapine 10 MG RAPDIS TABLET PO SCH (20:19)
[2019-07-14] MEDS: MULTIVITAMINS WITH MINERALS, THERAPEUTIC TABLET PO SCH (09:25)
[2019-07-14] MEDS: OMEPRAZOLE 20 MG CAPSULE PO SCH (09:25)
[2019-07-14] MEDS: BuPROPion HCL 75 MG TABLET PO SCH (09:25)
[2019-07-14] MEDS: DULoxetine HCL 60 MG CAPSULE PO SCH (09:26)
[2019-07-14] MEDS: THIAMINE HCL 100 MG TABLET PO SCH ×2 (09:26→17:24)
[2019-07-14] MEDS: LISINOPRIL 20 MG TABLET PO SCH (09:26)
[2019-07-14] MEDS: FOLIC ACID 1 MG TABLET PO SCH (09:26)
[2019-07-14 10:24] VITALS: BP 155/90
[2019-07-14 17:07] VITALS: BP 136/65
[2019-07-14] MEDS: OLANZapine 10 MG RAPDIS TABLET PO SCH (22:46)
[2019-07-15] MEDS: LISINOPRIL 20 MG TABLET PO SCH (09:27)
[2019-07-15] MEDS: OMEPRAZOLE 20 MG CAPSULE PO SCH (09:27)
[2019-07-15] MEDS: DULoxetine HCL 60 MG CAPSULE PO SCH (09:27)
[2019-07-15] MEDS: THIAMINE HCL 100 MG TABLET PO SCH (09:27)
[2019-07-15] MEDS: FOLIC ACID 1 MG TABLET PO SCH (09:27)
[2019-07-15] MEDS: BuPROPion HCL 75 MG TABLET PO SCH (09:27)
[2019-07-15] MEDS: MULTIVITAMINS WITH MINERALS, THERAPEUTIC TABLET PO SCH (09:27)
[2019-07-15 10:24] VITALS: BP 143/75
[2019-07-15] MEDS: MAGNESIUM HYDROXIDE SUSPENSION 30 ML UDCUP PO PRN (13:00)
[2019-07-15 16:51] VITALS: BP 123/75
[2019-07-15] MEDS: OLANZapine 10 MG RAPDIS TABLET PO SCH (20:50)
[2019-07-16 08:00] VITALS: BP 141/82
[2019-07-16] MEDS: DULoxetine HCL 60 MG CAPSULE PO SCH (08:05)
[2019-07-16] MEDS: BuPROPion HCL 75 MG TABLET PO SCH (08:06)
[2019-07-16] MEDS: LISINOPRIL 20 MG TABLET PO SCH (08:06)
[2019-07-16] MEDS: MULTIVITAMINS WITH MINERALS, THERAPEUTIC TABLET PO SCH (08:06)
[2019-07-16] MEDS: OMEPRAZOLE 20 MG CAPSULE PO SCH (08:06)
[2019-07-16] MEDS: ACETAMINOPHEN 325 MG TABLET PO PRN (13:17)
[2019-07-16 17:08] VITALS: BP 147/94
[2019-07-16] MEDS: OLANZapine 10 MG RAPDIS TABLET PO SCH (20:09)
[2019-07-17] MEDS: MAGNESIUM HYDROXIDE SUSPENSION 30 ML UDCUP PO PRN (05:25)
[2019-07-17 05:38] LABS: GLUCOMETER DEV NAME(LOC) 3EX.; GLUCOSE,POINT OF CARE 163 MG/DL (70-110)
[2019-07-17 05:47] VITALS: BP 154/65
[2019-07-17] MEDS: MULTIVITAMINS WITH MINERALS, THERAPEUTIC TABLET PO SCH (08:13)
[2019-07-17] MEDS: OMEPRAZOLE 20 MG CAPSULE PO SCH (08:13)
[2019-07-17] MEDS: LISINOPRIL 20 MG TABLET PO SCH (08:13)
[2019-07-17] MEDS: BuPROPion HCL 75 MG TABLET PO SCH (08:14)
[2019-07-17] MEDS: DULoxetine HCL 60 MG CAPSULE PO SCH (08:14)
[2019-07-17 08:27] VITALS: BP 143/78
[2019-07-17 17:46] VITALS: BP 137/60
[2019-07-17] MEDS: OLANZapine 10 MG RAPDIS TABLET PO SCH (20:26)
[2019-07-18] MEDS: OMEPRAZOLE 20 MG CAPSULE PO SCH (08:04)
[2019-07-18] MEDS: LISINOPRIL 20 MG TABLET PO SCH (08:04)
[2019-07-18] MEDS: DULoxetine HCL 60 MG CAPSULE PO SCH (08:04)
[2019-07-18] MEDS: MULTIVITAMINS WITH MINERALS, THERAPEUTIC TABLET PO SCH (08:04)
[2019-07-18] MEDS: BuPROPion HCL 75 MG TABLET PO SCH (08:04)
[2019-07-18 09:51] VITALS: BP 141/76
[2019-07-18 19:10] VITALS: BP 147/73
[2019-07-18] MEDS: OLANZapine 10 MG RAPDIS TABLET PO SCH (21:03)
[2019-07-19] MEDS: LISINOPRIL 20 MG TABLET PO SCH (08:23)
[2019-07-19] MEDS: BuPROPion HCL 75 MG TABLET PO SCH (08:23)
[2019-07-19] MEDS: OMEPRAZOLE 20 MG CAPSULE PO SCH (08:24)
[2019-07-19] MEDS: MULTIVITAMINS WITH MINERALS, THERAPEUTIC TABLET PO SCH (08:24)
[2019-07-19 08:30] VITALS: BP 158/79
[2019-07-19] MEDS: DULoxetine HCL 60 MG CAPSULE PO SCH (08:30)
[2019-07-19 17:02] VITALS: BP 162/92
[2019-07-19] MEDS: OLANZapine 10 MG RAPDIS TABLET PO SCH (20:22)
[2019-07-20 08:00] VITALS: BP 151/79
[2019-07-20] MEDS: MULTIVITAMINS WITH MINERALS, THERAPEUTIC TABLET PO SCH (08:33)
[2019-07-20] MEDS: LISINOPRIL 20 MG TABLET PO SCH (08:34)
[2019-07-20] MEDS: OMEPRAZOLE 20 MG CAPSULE PO SCH (08:34)
[2019-07-20] MEDS: DULoxetine HCL 60 MG CAPSULE PO SCH ×2 (08:34→08:45)
[2019-07-20] MEDS: BuPROPion HCL 75 MG TABLET PO SCH (08:35)
[2019-07-20 17:00] VITALS: BP 139/80
[2019-07-20] MEDS ORDERED: OLAN10TA22 PO (18:23)
[2019-07-20] MEDS ORDERED: DULO60CA44 PO (18:23)
[2019-07-20] MEDS ORDERED: BUPR75 PO (18:23)
[2019-07-20] MEDS: OLANZapine 10 MG RAPDIS TABLET PO SCH (20:30)
[2019-07-21] MEDS: DULoxetine HCL 60 MG CAPSULE PO SCH (09:00)
[2019-07-21] MEDS: MULTIVITAMINS WITH MINERALS, THERAPEUTIC TABLET PO SCH (09:13)
[2019-07-21] MEDS: OMEPRAZOLE 20 MG CAPSULE PO SCH (09:13)
[2019-07-21] MEDS: LISINOPRIL 20 MG TABLET PO SCH (09:13)
[2019-07-21] MEDS: BuPROPion HCL 75 MG TABLET PO SCH (09:14)
[2019-07-21 09:40] VITALS: BP 162/93
[2019-07-21] MEDS: ACETAMINOPHEN 325 MG TABLET PO PRN (09:43)
[2019-07-21 10:43] VITALS: BP 124/69
== END 2019-07-21 18:20 | disposition home or self-care (01) | DRG 885 ==
LOC: 3EX 17:26
PROVIDERS: ADMIT Psychiatry & Neurology Psychiatry; ATTEND Psychiatry & Neurology Psychiatry
DX: F25.1 Schizoaffective disorder, depressive type (principal); R45.851 Suicidal ideations; E55.9 Vitamin D deficiency, unspecified; G47.00 Insomnia, unspecified; K21.9 Gastro-esophageal reflux disease without esophagitis; K59.00 Constipation, unspecified; I10 Essential (primary) hypertension; E78.5 Hyperlipidemia, unspecified; F41.9 Anxiety disorder, unspecified; M19.90 Unspecified osteoarthritis, unspecified site; R41.843 Psychomotor deficit; Z59.0 Homelessness; Z88.6 Allergy status to analgesic agent; Z79.899 Other long term (current) drug therapy; Z28.21 Immunization not carried out because of patient refusal
CPT/HCPCS: 80307; 82607; 82746; 83036; 84439; 84443; 86592; G0378

== ENCOUNTER 2019-12-03 17:55 | Emergency (ER) | payer MEDICARE, OTHER ==
[~2019-12-03] VITALS: Ht 160 cm; Wt 64.8 kg
[~2019-12-03 17:55] MED LIST changes: -BUPR-47 PO; -BUPR-93 PO; +BUPR75 PO; -MULT-1239 PO; -OLAN10TA6 PO
[2019-12-03] MEDS ORDERED: CIPROFLOXACIN HCL 250 MG TABLET PO ONE (20:45)
[2019-12-03 21:23] VITALS: BP 178/82
== END 2019-12-03 21:37 | disposition home or self-care (01) ==
LOC: EMS 17:58
DX: H60.91 Unspecified otitis externa, right ear (principal); J02.9 Acute pharyngitis, unspecified; R05 Cough; Z20.828 Contact with and (suspected) exposure to other viral communicable diseases